=== PATIENT | female | born 1945 | race Caucasian/White ===

== ENCOUNTER → 2017-12-06 10:28 | Outpatient (CLI) | payer MEDICARE, SELFPAY ==
[2017-12-08 13:10] LABS: Endomysial Antibody IgA Negative (Negative)
[2017-12-08 13:43] LABS: Immunoglobulin A 182 mg/dL (64-422); t-Transglutaminase IgA <2 U/mL (0-3)
== END ==
PROVIDERS: Family Provider Family Medicine; PCP Family Medicine; Referring Provider Internal Medicine Gastroenterology; Visit Provider Internal Medicine Gastroenterology
DX: K90.0 Celiac disease (principal)
CPT/HCPCS: 36415; 82784; 83516; 86255

== ENCOUNTER → 2018-11-22 | Outpatient (CLI) | payer MEDICARE, SELFPAY ==
[2018-11-22 14:09] LABS: Erythrocyte Sedimentation Rate 51 mm/hr (0-30)
[2018-11-26 12:07] LABS: Anti-Jo <0.2 AI (0.0-0.9); Anti-Scleroderma-70 AB <0.2 AI (0.0-0.9)
[2018-11-26 12:31] LABS: ANTINUCLEAR ANTIBODIES DIRECT Negative (Negative); Anti-dsDNA Ab <1 IU/mL (0-9)
[2018-11-27 16:08] LABS: Angiotensin Convert Enzyme 35 U/L (14-82); Cytoplasmic Ab (C-ANCA) 1:20 titer (Neg:<1:20)
[2018-11-28 12:55] LABS: CCP IgG Antibodies 6 units (0-19)
== END | disposition home or self-care (01) ==
PROVIDERS: Family Provider Family Medicine; PCP Family Medicine; Referring Provider Internal Medicine Pulmonary Disease; Visit Provider Internal Medicine Pulmonary Disease
DX: R05 Cough (principal); M19.90 Unspecified osteoarthritis, unspecified site; J84.10 Pulmonary fibrosis, unspecified
CPT/HCPCS: 36415; 82164; 85652; 86038; 86140; 86200; 86225; 86235; 86256; 86431

== ENCOUNTER → 2018-11-23 | Outpatient (CLI) | payer MEDICARE, SELFPAY | END | disposition home or self-care (01) | LOC: LABSPEC 11:34 | PROVIDERS: Family Provider Family Medicine; PCP Family Medicine; Referring Provider Internal Medicine Pulmonary Disease; Visit Provider Internal Medicine Pulmonary Disease | DX: R05 Cough (principal); J84.10 Pulmonary fibrosis, unspecified | CPT/HCPCS: 87015; 87116; 87206 ==

== ENCOUNTER → 2018-11-27 | Outpatient (CLI) | payer MEDICARE, SELFPAY | END | disposition home or self-care (01) | LOC: LABSPEC 09:50 | PROVIDERS: Family Provider Family Medicine; PCP Family Medicine; Referring Provider Internal Medicine Pulmonary Disease; Visit Provider Internal Medicine Pulmonary Disease | DX: R05 Cough (principal); J84.10 Pulmonary fibrosis, unspecified | CPT/HCPCS: 87015; 87116; 87206 ==

== ENCOUNTER → 2018-11-28 | Outpatient (CLI) | payer MEDICARE, SELFPAY | END | disposition home or self-care (01) | LOC: LABSPEC 11:26 | PROVIDERS: Family Provider Family Medicine; PCP Family Medicine; Referring Provider Internal Medicine Pulmonary Disease; Visit Provider Internal Medicine Pulmonary Disease | DX: R05 Cough (principal); J84.10 Pulmonary fibrosis, unspecified | CPT/HCPCS: 87015; 87116; 87206 ==

== ENCOUNTER → 2018-11-30 | Outpatient (CLI) | payer MEDICARE, SELFPAY ==
--- NOTE | 2018-11-30 09:44 | RAD_ITS ---
PROCEDURE: Sniff test. DATE OF EXAMINATION: November 30, 2018. INDICATION: Female, 73 years old. Pulmonary fibrosis. FLUOROSCOPY TIME (if supplied): (0:14) minutes/seconds. One image was obtained. There is normal translation of the hemidiaphragms during inspiration and expiration maneuvers. RAD/Chest Sniff Test Fluoro Only IMPRESSION: Normal translation of the hemidiaphragms. Electronically Signed: Carl Salas, at 10:37 EDT , Service support ,
--- NOTE | 2018-11-30 09:55 | RAD_ITS ---
STUDY: X-RAY CHEST REASON FOR EXAM: Female, 73 years old. Pulmonary fibrosis TECHNIQUE: PA and lateral views of the chest. COMPARISON: None. FINDINGS: There are interstitial fibrotic changes of the lungs, particularly the lung bases. There is no demonstrated pleural abnormality. Normal size heart. Normal mediastinum and saeed. Normal visualized pulmonary arteries. There is atherosclerotic tortuosity of the aortic arch and descending thoracic aorta. There is demineralization of the osseous structures. Exaggerated thoracic kyphosis with compression fracture of the lower thoracic spine, likely chronic. There is no demonstrated abnormality of the visualized soft tissue structures of the upper abdomen. RAD/Chest PA and Lateral IMPRESSION: Significant pulmonary fibrosis particularly in the lung bases. Electronically Signed: Marv Pan MD ([place]) at 17:08 EDT , Service support ,
== END | disposition home or self-care (01) ==
LOC: RAD 09:41
PROVIDERS: Family Provider Family Medicine; PCP Family Medicine; Referring Provider Internal Medicine Pulmonary Disease; Visit Provider Internal Medicine Pulmonary Disease
DX: J84.10 Pulmonary fibrosis, unspecified (principal); R06.00 Dyspnea, unspecified
CPT/HCPCS: 71046; 76000

== ENCOUNTER → 2019-03-01 15:09 | Outpatient (CLI) | payer MEDICARE, SELFPAY ==
--- NOTE | 2019-03-01 15:12 | RAD_ITS ---
STUDY: X-RAY CHEST REASON FOR EXAM: Female, 73 years old. pulmonary fibrosis TECHNIQUE: PA and lateral views of the chest. COMPARISON: 11/30/2018 FINDINGS: Peripheral and basilar dominant parenchymal fibrosis/reticulation similar in distribution since prior study. No airspace consolidation. There is no demonstrated pleural abnormality. Normal size heart. Normal mediastinum and saeed. Normal visualized pulmonary arteries. There is atherosclerotic tortuosity of the aortic arch and descending thoracic aorta. There is demineralization of the osseous structures. Operative changes of the left proximal humerus partially visualized. There is no demonstrated abnormality of the visualized soft tissue structures of the upper abdomen. RAD/Chest PA and Lateral IMPRESSION: Similar pulmonary fibrosis. Electronically Signed: Marv Pan MD ([place]) at 17:04 EST , Service support ,
== END ==
PROVIDERS: Family Provider Family Medicine; PCP Family Medicine; Referring Provider Internal Medicine Pulmonary Disease; Visit Provider Internal Medicine Pulmonary Disease
DX: J84.10 Pulmonary fibrosis, unspecified (principal)
CPT/HCPCS: 71046

== ENCOUNTER 2019-03-10 19:16 | Inpatient (IN) | payer MEDICARE, SELFPAY ==
[2019-03-10 19:19] VITALS: BP 180/86; PULSE 78; RESP 25; TEMP 36.1; O2SAT 100; BMI 20.6
[2019-03-10 19:27] VITALS: BP 180/86; PULSE 76; RESP 24; O2SAT 98
[2019-03-10 19:36] LABS: Bedside Glucose 89 mg/dL (70-110)
--- NOTE | 2019-03-10 19:40 | CT_ITS ---
STUDY: CT THORACIC SPINE WITHOUT CONTRAST REASON FOR EXAM: Female, 73 years old. Compression fracture. Back pain. RADIATION DOSAGE (If Supplied By Facility): CTDIvol = ( 18.42 ) mGy, DLP = ( 700.93 ) mGycm TECHNIQUE: The patient was scanned in a multi detector CT scanner. High resolution imaging was performed. Sagittal and coronal images were reconstructed. Individualized dose optimization techniques were used for this CT. COMPARISON: Radiographs 02/07/2017, chest x-ray 03/01/2019. FINDINGS: Exam is markedly limited because patient was constantly moving. Severe demineralization. Severe compression fracture of T11 similar to previous radiographs. Moderate to severe compression fractures of T7 and T8, very difficult to see on any prior studies. These could be acute or subacute. Moderate levoconvex scoliosis centered at the lower thoracic spine. Rib fractures cannot be excluded because of the motion. Severe fibrotic pulmonary disease. CT/Spine Thoracic without Contras IMPRESSION: Extremely limited exam, nearly uninterpretable. Compression fractures of T7, and T8 are of indeterminate age. Severe compression fracture of T11 was present on previous studies listed above but has progressed since 2017. Electronically Signed: Braulio Barlow MD at 21:47 EST , Service support ,
--- NOTE | 2019-03-10 19:42 | ED.VIS.GEN ---
History of Present Illness Chief Complaint: Alt LOC Informant: Patient, Family Onset: Yesterday Narrative: Presents EMS from home he with family worsening nontraumatic upper back pain since yesterday. History of osteoporosis, multiple compression fractures in the past, no surgical intervention, current chronic prednisone use daily for the past 3 months due to history of pulmonary fibrosis. She was started on CellCept 4 days ago. Tylenol with codeine taken at 6 PM less than 2 hours ago with no relief. No radicular symptoms. Symptoms worse with movement. Chronic dyspnea and O2 use due to pulmonary fibrosis, per spouse and family currently high concerns for potential rheumatoid arthritis causing pulmonary fibrosis due to her mother having significant rheumatoid arthritis. She is being referred to a manufacturing engineering technician. Nursing charting noted concerns for confusion, however per spouse and family, there is no confusion at times she just would not answer. Patient denies any nausea, vomiting, diarrhea. No urinary symptoms. States chronic mild cough nonproductive due to her pulmonary fibrosis. Patient reports she does not ambulate with a walker. States due to her back pain causing her to feel dyspneic. Prior similar symptoms: Yes Past Medical History - Allergies and Home Meds Allergies/Adverse Reactions: Allergies cortisone Allergy (Verified 02/07/17 11:52) Swelling latex Allergy (Verified 02/07/17 11:52) Other WAS TOLD TO AVOID sulfamethoxazole [From Bactrim] Allergy (Verified 02/07/17 11:52) Other PROBLEMS SWALLOWING trimethoprim [From Bactrim] Allergy (Verified 02/07/17 11:52) Other PROBLEMS SWALLOWING sulfadimethoxine Adverse Reaction (Verified 02/07/17 11:52) Other I HAD TROUBLE WITHY MY THROAT Surgical History: - - The patient had a bladder suspension procedure performed many years ago. Smoking Status: Former smoker - Family History Maternal Family History: Reports: No pertinent history Paternal Family History: Reports: No pertinent history Review of Systems General: Denies: Chills, Fever, Sweats Eyes: Denies: Visual changes - bilaterally, Diplopia ENT: Denies: Rhinorrhea, Sore throat Cardiovascular: Denies: Chest pain, Palpitations Respiratory: Reports: Dyspnea. Denies: Cough, Dyspnea on exertion Gastrointestinal: Denies: Abdominal pain, Nausea, Vomiting, Diarrhea, Melena, Hematochezia Genitourinary: Denies: Dysuria, Hematuria, Frequency Musculoskeletal: Reports: Back pain. Denies: Extremity Pain Skin: Denies: Rash, Wounds Neurological: Denies: Headache, Weakness, Numbness Physical Exam Vital Signs/Narrative: Vital Signs Temp Pulse Resp BP Pulse Ox 03/10/19 19:27 76 24 H 180/86 H 98 03/10/19 19:19 97.0 F L 78 25 H 180/86 H 100 Inital Vital Signs reviewed: Yes General: - - Nontoxic patient, on oxygen, answering questions. Head: Normocephalic, Atraumatic Eyes: Perrl, EOMI ENT: Moist mucous membranes, No rhinorrhea Neck: Supple, Nontender Cardiovascular: Regular rate, Regular rhythm, No murmurs Respiratory: No distress, CTA bilaterally, Chest nontender Abdomen: Soft, Nontender, Nondistended, Normal bowel sounds Back: - - Kyphosis of the upper back with tenderness mid thoracic. No step-offs. No lumbar tenderness. Extremities: Nontender, No edema Skin: Normal color, No rash Neurological: Alert, Oriented x3, Cranial nerves II-XII grossly intact, Normal Strength, Normal Sensation Psychological: Normal affect, Normal Mood Diagnostic/Tx/Re-eval Clinical Impression(s) from Imaging Studies Thoracic Spine CT 03/10/19 19:40 IMPRESSION: Extremely limited exam, nearly uninterpretable. Compression fractures of T7, and T8 are of indeterminate age. Severe compression fracture of T11 was present on previous studies listed above but has progressed since 2017. Electronically Signed: Braulio Barlow MD at 21:47 EST , Service support , Abnormal Lab Results 03/10/19 03/10/19 03/10/19 19:20 19:20 19:26 WBC 13.8 H RBC 4.69 Hgb 14.6 Hct 45.1 MCV 96.2 MCH 31.1 MCHC 32.4 RDW Std Deviation 50.4 H RDW Coeff of Joey 14.5 Plt Count 381 MPV 10.2 Immature Gran % (Auto) 0.700 Neut % (Auto) 64.3 Lymph % (Auto) 23.7 [place] % (Auto) 10.5 H Eos % (Auto) 0.5 Baso % (Auto) 0.3 Absolute Neuts (auto) 8.9 H Absolute Lymphs (auto) 3.27 Nucleated RBC % 0 Sodium 137 Potassium 3.7 Chloride 99 Carbon Dioxide 30.0 Anion Gap 8 BUN 20 H Creatinine 1.00 Estim Creat Clear Calc 35.99 Est GFR (MDRD) Af Amer 70 Est GFR (MDRD) Non-Af 58 L BUN/Creatinine Ratio 20.0 Glucose 105 Calcium 9.3 POC Glucose 89 - Medical Decision Making After evaluation patient concerns for recurrent compression fracture of her back causing her dyspnea. She has risk factors osteoporosis and chronic steroid therapy. Stable on her oxygen. Labs were obtained with slight leukocytosis however she is on steroids. Pretreated with morphine due to her kyphosis and back pain, received call patient was able to lay still even additional fentanyl. They were able to to do the CT have reported to me likely to be nondiagnostic. I discussed with them the try to obtain an upright thoracic films which was obtained and pending. However in the interim CT was read by radiology with a lot of motion artifact reporting an old T11 fracture reporting potential acute versus subacute T7-T8 fracture. Review of records noted she had a thoracic x-ray in 2017 reporting only a T8 fracture then, at this time I would suspect possibly of T7 fracture being the culprit of her pain. She reports she feels more comfortable and breathing better with pain control as long she is not moving. Tylenol with codeine is not helping at home, I do feel she will benefit from admission for pain control. She is not a surgical candidate due to her osteoporosis and discussion with family has been told would likely cause additional fractures other regions. I spoke with hospitalist Dr. long who agrees for admission. ED Disposition - Plan for ED Patient: Disposition: Acute Care Hospital [facility] Diagnosis: Intractable back pain, Compression fracture of T7 vertebra
[2019-03-10 19:51] LABS: Absolute Lymphocyte Count 3.27 X10^3/uL (0.83-4.51); Absolute Neutrophil Count 8.9 X10^3/uL (2.0-7.7); Basophil# 0.04 X10^3/uL; Basophil% 0.3 % (0-1); Eosinophil# 0.07 X10^3/uL; Eosinophils% 0.5 % (0-5); Hematocrit 45.1 % (37-47); Hemoglobin 14.6 g/dL (12.0-15.0); Lymphocyte # 3.27 X10^3/ul (4.0); Lymphocyte % 23.7 % (19-41); Mean Corp Hgb Conc 32.4 g/dL (32-36); Mean Corpuscular Hgb 31.1 pg (27.0-32.0); Mean Corpuscular Volume 96.2 fL (81-99); Mean Platelet Vol. 10.2 fl (6.2-12.0); Monocyte# 1.45 X10^3/uL; Monocyte% 10.5 % (0-10); NRBC Flagged by Analyzer 0 % (0-5); Neutrophil # 8.89 X10^3/uL (2.7-7.7); Neutrophil % 64.3 % (47-70); Platelet Count 381 K/mm3 (150-450); RBC Distribution Width CV 14.5 % (11.6-14.6); RBC Distribution Width SD 50.4 fl (35.1-43.9); Red Blood Count 4.69 M/mm3 (4.2-5.4); White Blood Count 13.8 K/mm3 (4.4-11.0)
[2019-03-10] MEDS: Morphine 4 MG/ML Syringe IV (19:52)
[2019-03-10 19:58] LABS: Anion Gap 8 (5-15); BUN 20 mg/dL (7-18); Calcium,Total 9.3 mg/dL (8.5-10.1); Chloride 99 mmol/L (98-107); EST Glomerular Filtration Rate 58 mL/min (>60); Est Glom Filt Rate - Afr Amer 70 mL/min (>60); Estimated Creatinine Clearance 35.99 ml/min; Glucose 105 mg/dL (74-106); Potassium 3.7 mmol/L (3.5-5.1); Sodium Level 137 mmol/L (136-145)
[2019-03-10] MEDS: fentaNYL 100 MCG/2 ML Ampul 50 MCG IV (20:17)
--- NOTE | 2019-03-10 21:10 | RAD_ITS ---
STUDY: X-RAY - THORACIC SPINE REASON FOR EXAM: Female, 73 years old. BACK PAIN TECHNIQUE: 3 view(s) of the thoracic spine were obtained. COMPARISON: 02/07/2017. FINDINGS: There is an increase in the normal thoracic kyphosis. There is no substantial scoliosis. Severe multilevel spondylosis and multiple wedge compression deformities, age indeterminate. The upper thoracic spine is poorly characterized due to radiographic technique and patient body habitus. Increased pulmonary markings are poorly characterized. RAD/Thoracic Spine 3 Views IMPRESSION: Limited evaluation due to patient body habitus and radiographic technique. Severe multilevel spondylosis and multiple wedge compression deformities are worsened since the prior examination and are better assessed by CT. Electronically Signed: Adin Avina, at 22:46 EST Tel , Service support ,
--- NOTE | 2019-03-10 22:20 | HP.PCM_ITS ---
Problem List (1) Psoriasis Status: Chronic (2) Lumbar disc disease Status: Chronic (3) Hypertension Status: Chronic Qualifiers: Hypertension type: essential hypertension Qualified Code(s): I10 - Essential (primary) hypertension (4) Intractable back pain Status: Acute (5) Compression fracture of T7 vertebra Status: Acute Qualifiers: Encounter type: initial encounter Qualified Code(s): S22.060A - Wedge compression fracture of T7-T8 vertebra, initial encounter for closed fracture History of Present Illness Date of Admission: 03/10/19 Chief Complaint: Back pain - 2 days The patient is a 73 year old F with past medical history of severe pulmonary fibrosis, chronic hypoxic respiratory failure, on 2.5 L of home oxygen, on chronic prednisone since the past 3 months, history of osteoporosis with multiple vertebral compression fractures comes in with complaints of severe back pain that started 2 days ago. History was obtained from the as patient was in pain and sometimes refuses to answer. Has no history of a fall or trauma. Patient suddenly complained of severe back pain and this has been similar to her previous compression fractures. Pain was not relieved with her usual Tylenol #3. Pain is worse with movement. No tingling or numbness. No incontinence of urine or stool. She has recently been started on CellCept for possible rheumatoid arthritis based on a family history of rheumatoid arthritis. She has been referred to a insurance claims clerk and is yet to see physician. Baseline, patient does not need any assistive devices to ambulate. He however is currently unable to ambulate. Vitals in the ED showed temperature of 97.0F, heart rate 78, blood pressure 180/86, respiratory rate 25, SPO2 100% on 2.5 L of oxygen. WBC count is 13.8, hemoglobin 14.6, platelet count 381, BMP is unremarkable. CT scan of the thoracic spine shows severe compression fracture of T11 that appears to be chronic. Moderate to severe compression fractures of T7-T8, likely acute. Past Medical History Past Medical History (Chronic Problems): Chronic Problems (Last Reviewed 02/07/17 @ 11:52 by Nawaf Ny) Edema of both legs (Chronic) Eczema (Chronic) Erythromelalgia (Chronic) Swelling of lower extremity (Chronic) Raynaud's phenomenon (Chronic) Psoriasis (Chronic) Pain in both lower legs (Chronic) Lumbar disc disease (Chronic) Hypertension (Chronic) Allergies cortisone Allergy (Verified 02/07/17 11:52) Swelling latex Allergy (Verified 02/07/17 11:52) Other WAS TOLD TO AVOID sulfamethoxazole [From Bactrim] Allergy (Verified 02/07/17 11:52) Other PROBLEMS SWALLOWING trimethoprim [From Bactrim] Allergy (Verified 02/07/17 11:52) Other PROBLEMS SWALLOWING sulfadimethoxine Adverse Reaction (Verified 02/07/17 11:52) Other I HAD TROUBLE WITHY MY THROAT Home Medications: Ambulatory Orders Medication Instructions Recorded Clonidine HCl [Catapres] 0.3 mg PO TID 11/04/14 Multivit-Min/FA/Lycopen/Lutein 1 ea PO DAILY 03/15/16 [Centrum Silver Tablet] Potassium Chloride [Klor-Con] 20 meq PO DAILY 03/15/16 Alendronate Sodium [Fosamax] 70 mg PO QWEEK 08/10/16 Acetaminophen with Codeine 1 - 2 tab PO Q6H PRN 03/10/19 [Acetaminophen-Cod #3 Tablet] Brinzolamide/Brimonid Tart 1 drp OP QHS 03/10/19 [Simbrinza 1%-0.2% Eye Drops] Buspirone HCl 10 mg PO TID 03/10/19 Latanoprost 0.005% [Xalatan 1 drp EACHEYE BID 03/10/19 Opthalmic] Mycophenolate Mofetil [Cellcept] 500 mg PO BID 03/10/19 Netarsudil Mesylate [Rhopressa] 2.5 ml EACHEYE QHS 03/10/19 Omeprazole [Prilosec] 20 mg PO DAILY 03/10/19 Prednisone [Deltasone] 30 mg PO DAILY 03/10/19 Tizanidine HCl 4 mg PO Q8H 03/10/19 Surgical History: - - The patient had a bladder suspension procedure performed many years ago, removal of cyst from perineum Psychiatric History: No pertinent psych hx 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 Lives: Spouse/ Significant Other Smoking Status: Former smoker Tobacco Use: Non-smoker Alcohol: None Drugs: None - *Family History Maternal History Items: - - Rheumatoid arthritsi Paternal History Items: No pertinent history Review of Systems Respiratory: Denies: Sputum production Psychiatric: Reports: Anxiety Unable to obtain accurate/complete ROS d/t: Unable to do a complete ROS as pt is in deep pain and refuses to answer VTE Information - Inpt Only VTE Present on Admission: No VTE Pharm Prophylaxis ordered?: Yes Patient Problems: Active and Suspected Problems (Last Reviewed 02/07/17 @ 11:52 by Nawaf Ny) Intractable back pain (Acute) Compression fracture of T7 vertebra (Acute) - Physical Exam Vitals/I&O's: Vital Signs Temp Pulse Resp BP Pulse Ox 97.0 F L 76 24 H 180/86 H 98 03/10/19 19:19 03/10/19 19:27 03/10/19 19:27 03/10/19 19:27 03/10/19 19:27 Oxygen Flow Rate (L/min) 2.5 Oxygen Delivery Method Room Air Weight: 48 kg Body Mass Index (BMI) 20.6 Finger Stick Blood Glucose 89 Intake and Output for Last 24 Hours 03/08/19 03/09/19 03/10/19 23:59 23:59 23:59 Intake Total 500 / 500 Balance 500 / 500 General: Alert, Cooperative, - - in severe pain, does not answer to questions, keeps eyes closed and flinches HEENT: Atraumatic, PERRLA, EOMI, Normocephalic Oral: Moist Mucosa Neck: Supple Lungs: Clear to auscultation, Normal air movement Cardiovascular: Regular rate, Regular Rhythm, Normal S1, Normal S2, No murmurs Abdomen: Bowel Sounds Present, Soft, Non Tender, Non-Distended, No Hepato- splenomegaly Extremities: No edema Skin: No rashes Musculoskeletal: No Tenderness to Palpation of Joints or Extremities Lymphatic: No Cervical, Supraclavicular, or Inguinal Adenopathy Neurological: Cranial nerves II-XII grossly intact, Neuro grossly intact Psych/Mental Status: Normal Affect, Appropriate Laboratory Results 03/10/19 19:20: WBC 13.8 H, RBC 4.69, Hgb 14.6, Hct 45.1, MCV 96.2, MCH 31.1, MCHC 32.4, RDW Std Deviation 50.4 H, RDW Coeff of Joey 14.5, Plt Count 381, MPV 10.2, Immature Gran % (Auto) 0.700, Neut % (Auto) 64.3, Lymph % (Auto) 23.7, [place] % (Auto) 10.5 H, Eos % (Auto) 0.5, Baso % (Auto) 0.3, Absolute Neuts (auto) 8.9 H, Absolute Lymphs (auto) 3.27, Nucleated RBC % 0 03/10/19 19:20: Sodium 137, Potassium 3.7, Chloride 99, Carbon Dioxide 30.0, Anion Gap 8, BUN 20 H, Creatinine 1.00, Estim Creat Clear Calc 35.99, Est GFR (MDRD) Af Amer 70, Est GFR (MDRD) Non-Af 58 L, BUN/Creatinine Ratio 20.0, Glucose 105, Calcium 9.3 03/10/19 19:26: POC Glucose 89 Assessment/Plan All Active Problems (Last Reviewed 02/07/17 @ 11:52 by Nawaf Ny) Intractable back pain (Acute) Compression fracture of T7 vertebra (Acute) Hyponatremia (Acute) Abdominal pain (Acute) 73 year old F with past medical history of severe pulmonary fibrosis, chronic hypoxic respiratory failure, on 2.5 L of home oxygen, on chronic prednisone since the past 3 months, history of osteoporosis with multiple vertebral compression fractures comes in with complaints of severe back pain that started 2 days ago. 1. Acute on chronic back pain secondary to acute T7 compression fractures Patient has history of osteoporosis, on chronic prednisone for more than 3 months for severe pulmonary fibrosis History of vertebral compression fractures, takes tylenol #3 at home Hold Tylenol#3, oxycodone as needed, scheduled Tylenol, morphine as needed, Lidoderm patches to the upper back affected area Continue on tizanidine Pain management - Dr. Patel consulted 2. Severe pulmonary fibrosis with chronic hypoxic respiratory failure, on 2.5 L of oxygen Patient is on chronic prednisone, recently started on CellCept for possible rheumatoid arthritis involvement Pulmonology consult -Dr Engle 3. Hypertension, uncontrolled secondary to pain, on clonidine, will continue same 4. Osteoporosis, on alendronate 5. DVT PPx - on Heparin SC Code Visit Inpatient E&M: 40439 Init Hosp L3
[2019-03-10 22:22] VITALS: BP 151/89; PULSE 85; RESP 14; O2SAT 100
[2019-03-10 23:36] VITALS: BP 157/96; PULSE 79; RESP 20; TEMP 36.7; O2SAT 96; BMI 21.3
[2019-03-10 23:53] VITALS: RESP 22; BMI 21.3
[2019-03-11] VITALS (24 sets, daily range): BP systolic 126–198; BP diastolic 63–94; PULSE 81–121; RESP 16–44; TEMP 36.6–37.1; O2SAT 94–99
[2019-03-11] MEDS: Ondansetron 4 MG/2 ML Vial IV (00:22)
[2019-03-11] MEDS: Latanoprost 0.005% 1 Bottle 1 DRP OPHTHALMIC ×3 (00:24→22:08)
[2019-03-11] MEDS: Morphine 2 MG/ML Syringe IV ×5 (00:25→22:08)
[2019-03-11] MEDS: Mycophenolate Mofetil 250 MG Capsule 500 MG PO (00:26)
[2019-03-11] MEDS: 0.9% Normal Saline 1,000 ML 100 ML IV (00:32)
[2019-03-11] MEDS: 0.9% Saline Lock 10 ML Syringe IV ×6 (00:33→23:47)
[2019-03-11] MEDS: Acetaminophen 500 MG Tablet 1000 MG PO (00:33)
[2019-03-11 05:53] LABS: Absolute Lymphocyte Count 1.25 X10^3/uL (0.83-4.51); Absolute Neutrophil Count 13.1 X10^3/uL (2.0-7.7); Basophil# 0.03 X10^3/uL; Basophil% 0.2 % (0-1); Eosinophil# 0.01 X10^3/uL; Eosinophils% 0.1 % (0-5); Hematocrit 38.6 % (37-47); Hemoglobin 12.4 g/dL (12.0-15.0); Lymphocyte # 1.25 X10^3/ul (4.0); Lymphocyte % 8.5 % (19-41); Mean Corp Hgb Conc 32.1 g/dL (32-36); Mean Corpuscular Hgb 30.8 pg (27.0-32.0); Mean Platelet Vol. 10.6 fl (6.2-12.0); Monocyte# 0.27 X10^3/uL; Monocyte% 1.8 % (0-10); NRBC Flagged by Analyzer 0 % (0-5); Neutrophil # 13.09 X10^3/uL (2.7-7.7); Neutrophil % 88.8 % (47-70); Platelet Count 327 K/mm3 (150-450); RBC Distribution Width CV 14.4 % (11.6-14.6); RBC Distribution Width SD 50.8 fl (35.1-43.9); Red Blood Count 4.02 M/mm3 (4.2-5.4); White Blood Count 14.7 K/mm3 (4.4-11.0)
[2019-03-11] MEDS: hydrALAZINE 20 MG/ML Vial 5 MG IV ×3 (06:11→20:19)
[2019-03-11 06:25] LABS: ALB/GLOB Ratio 0.8 RATIO (0.9-2.4); AST(SGOT) 27 U/L (15-37); Alanine Aminotransfer ALT/SGPT 31 U/L (13-56); Albumin, Serum 2.6 g/dL (3.2-5.0); Alkaline Phosphatase 82 U/L (45-117); Anion Gap 5 (5-15); BUN 19 mg/dL (7-18); BUN/Creat Ratio 28.2 RATIO (10-20); Calcium,Total 8.5 mg/dL (8.5-10.1); Chloride 105 mmol/L (98-107); Creatinine, Serum 0.67 mg/dL (0.55-1.02); EST Glomerular Filtration Rate 91 mL/min (>60); Est Glom Filt Rate - Afr Amer 110 mL/min (>60); Globulin 3.2 g/dL (2.2-4.2); Glucose 102 mg/dL (74-106); Potassium 4.2 mmol/L (3.5-5.1); Protein, Total 5.8 g/dL (6.4-8.2); Sodium Level 137 mmol/L (136-145)
[2019-03-11] MEDS: Ipratropium/Albuterol Sulfate 3 ML AMPUL.NEB INHALATION ×4 (06:36→19:13)
--- NOTE | 2019-03-11 08:46 | CT_ITS ---
STUDY: CT BRAIN WITHOUT CONTRAST REASON FOR EXAM: Female, 73 years old. AMS RADIATION DOSAGE (If Supplied By Facility): CTDIvol = ( 44.99 ) mGy, DLP = ( 1524.73 ) mGycm TECHNIQUE: Transaxial CT imaging of the brain was performed without administration of intravenous contrast material. Individualized dose optimization techniques were used for this CT. COMPARISON: No relevant priors. FINDINGS: Normal soft tissue structures. Normal calvarium. There is mild cerebral atrophy with widening of the extra-axial spaces and ventricular dilatation. There are areas of decreased attenuation within the white matter tracts of the supratentorial brain, consistent with microvascular disease changes. Normal basal ganglia and thalami. Normal brainstem. Normal cerebellum. There is no intracranial hemorrhage. There are no findings of an acute ischemic infarction. Normal visualized paranasal sinuses. CT/Brain/Head without Contrast IMPRESSION: Chronic involutional changes of the brain. Electronically Signed: Carl Salas, at 13:25 EST , Service support ,
--- NOTE | 2019-03-11 08:58 | RAD_ITS ---
STUDY: X-RAY CHEST REASON FOR EXAM: Female, 73 years old. EXTREME SHORTNESS OF BREATH. TECHNIQUE: AP and lateral views of the chest. COMPARISON: Comparison is made with prior examination dated March 01, 2019. FINDINGS: Persistent marked degree of increased interstitial markings worse in the lower lobes indicative of chronic interstitial fibrosis. There has been essentially no change. There is no demonstrated pleural abnormality. Normal size heart. Normal mediastinum and saeed. Normal visualized pulmonary arteries. Normal visualized aortic arch and descending thoracic aorta. There is demineralization of the osseous structures. Increased kyphosis. Prior fixation of the proximal left humerus. There is no demonstrated abnormality of the visualized soft tissue structures of the upper abdomen. RAD/Chest PA and Lateral IMPRESSION: Stable extensive interstitial fibrosis of both lungs. Electronically Signed: Carl Salas, at 10:08 EST , Service support ,
--- NOTE | 2019-03-11 09:03 | NURSING ---
Called PCU to give report, [facility] team truck driver did not know yet would be receiving the pt.
--- NOTE | 2019-03-11 09:05 | NURSING ---
[id number]: mix house operator notified per Adam PA needs bed in pcu. receieved room 105. primary RN informed. aware pt on their way to CT. Aware pt will go to PCU afterwards. CT called and informed. primary RN calling report
--- NOTE | 2019-03-11 09:06 | NURSING ---
wound photo: right medial lower leg
--- NOTE | 2019-03-11 09:06 | NURSING ---
wound photo: left heel
--- NOTE | 2019-03-11 09:08 | NURSING ---
Daniel called and informed of transfer
--- NOTE | 2019-03-11 09:12 | NURSING ---
Report called to Deedee [place].
[2019-03-11] MEDS: LORazepam 2 MG/ML Syringe 0.5 MG IV ×3 (10:10→23:42)
[2019-03-11] MEDS: Heparin Injection (Vial) 5,000 UNIT/ML VIAL 5000 UNIT SC ×2 (10:11→22:13)
[2019-03-11 10:22] LABS: Ammonia < 10.0 umol/L (11-32)
[2019-03-11 10:24] LABS: Lactic Acid 2.2 mmol/L (0.4-1.9)
[2019-03-11] MEDS: Lidocaine 5% Patch 2 PATCH TOPICAL (11:23)
[2019-03-11 11:42] LABS: Bacteria 0 SEEN /hpf (None Seen); Mucous, Urine 0 SEEN /hpf (<or=2+); Red Blood Cells-Urine 0 SEEN /hpf (0-5); Squamous Epithelial Cells - UA 0 SEEN /hpf (5-10); White Blood Cells 0 SEEN /hpf (0-5)
[2019-03-11 12:02] LABS: Color, Urine Yellow (Yellow); Glucose, Dipstick Normal (Normal); Leukocyte Esterase-Dipstick Negative /ul (Negative); Nitrite-Dipstick Negative (Negative); Occult Blood-Urine Negative /ul (Negative); Protein-Dipstick 15 mg/dl (Negative); Urine Bilirubin Dipstick Negative (Negative); Urine Clarity Clear (Clear); Urine Urobilinogen Normal (Normal)
[2019-03-11 12:33] LABS: Ketone-Dipstick 150 mg/dl (Negative)
--- NOTE | 2019-03-11 13:01 | PCM.PN.HOSP ---
<Adam Rudolph - Last Filed: 03/11/19 15:31> Patient Problems: Active and Suspected Problems (Last Reviewed 02/07/17 @ 11:52 by Nawaf Ny) Intractable back pain (Acute) Compression fracture of T7 vertebra (Acute) Reason for Visit: AMS Subjective: Pt with increasing confusion overnight, and increased tachycardia, tachypnea, anxiety, and restlessness. She denies back pain today. She does report chills. She denies dysuria, cough, sob, abd pain, cp, LH/dizziness. No slurred speech or focal weakness. No SHEA, hearing or vision change. No numbness tingling. I spoke to her who reports that she has intermittent confusion at home when she has low sodium or severe back pain. He reports she has not been eating or drinking. Vitals/I&O's: Vital Signs Temp Pulse Resp BP Pulse Ox 98.6 F 93 18 136/69 H 99 03/11/19 11:00 03/11/19 11:00 03/11/19 11:00 03/11/19 11:00 03/11/19 11:00 Oxygen Flow Rate (L/min) 2.5 Oxygen Delivery Method Room Air Weight: 102 lb 8.239 oz Body Mass Index (BMI) 21.3 Finger Stick Blood Glucose 89 Intake and Output for Last 24 Hours 03/09/19 03/10/19 03/11/19 23:59 23:59 23:59 Intake Total 500 / 500 1620 / 1620 Output Total 1100 / 1100 Balance 500 / 500 520 / 520 General: Alert, Cooperative, Confused, Disoriented, - - a/ox2, frail HEENT: Atraumatic, PERRLA, EOMI, Normocephalic Neck: Supple, No JVD, Negative Carotid Bruits Lungs: Clear to auscultation, Diminished Cardiovascular: No murmurs, Tachycardic Abdomen: Bowel Sounds Present, Soft, Non Tender Extremities: No edema, Capillary Refill Less than 3 Seconds Skin: No rashes, No breakdown, - - L heal wound, no acute warmth, inflammation, erythema, drainage. Musculoskeletal: No Tenderness to Palpation of Joints or Extremities Neurological: Cranial nerves II-XII grossly intact Psych/Mental Status: Anxious, Restless Laboratory Results 03/10/19 19:20: WBC 13.8 H, RBC 4.69, Hgb 14.6, Hct 45.1, MCV 96.2, MCH 31.1, MCHC 32.4, RDW Std Deviation 50.4 H, RDW Coeff of Joey 14.5, Plt Count 381, MPV 10.2, Immature Gran % (Auto) 0.700, Neut % (Auto) 64.3, Lymph % (Auto) 23.7, Colbert % (Auto) 10.5 H, Eos % (Auto) 0.5, Baso % (Auto) 0.3, Absolute Neuts (auto) 8.9 H, Absolute Lymphs (auto) 3.27, Nucleated RBC % 0 03/10/19 19:20: Sodium 137, Potassium 3.7, Chloride 99, Carbon Dioxide 30.0, Anion Gap 8, BUN 20 H, Creatinine 1.00, Estim Creat Clear Calc 35.99, Est GFR (MDRD) Af Amer 70, Est GFR (MDRD) Non-Af 58 L, BUN/Creatinine Ratio 20.0, Glucose 105, Calcium 9.3 03/10/19 19:26: POC Glucose 89 03/11/19 05:16: WBC 14.7 H, RBC 4.02 L, Hgb 12.4, Hct 38.6, MCV 96.0, MCH 30.8, MCHC 32.1, RDW Std Deviation 50.8 H, RDW Coeff of Joey 14.4, Plt Count 327, MPV 10.6, Immature Gran % (Auto) 0.600, Neut % (Auto) 88.8 H, Lymph % (Auto) 8.5 L, Colbert % (Auto) 1.8, Eos % (Auto) 0.1, Baso % (Auto) 0.2, Absolute Neuts (auto) 13.1 H, Absolute Lymphs (auto) 1.25, Nucleated RBC % 0 03/11/19 05:16: Sodium 137, Potassium 4.2, Chloride 105, Carbon Dioxide 27.0, Anion Gap 5, BUN 19 H, Creatinine 0.67, Estim Creat Clear Calc 36.60, Est GFR (MDRD) Af Amer 110, Est GFR (MDRD) Non-Af 91, BUN/Creatinine Ratio 28.2 H, Glucose 102, Calcium 8.5, Total Bilirubin 1.10 H, AST 27, ALT 31, Alkaline Phosphatase 82, Total Protein 5.8 L, Albumin 2.6 L, Globulin 3.2, Albumin/Globulin Ratio 0.8 L 03/11/19 09:34: Lactic Acid 2.2 H* 03/11/19 09:44: Ammonia < 10.0 L 03/11/19 11:30: Urine Color Yellow, Urine Clarity Clear, Urine pH 6.0, Ur Specific [place] 1.020, Urine Protein 15 H, Urine Glucose (UA) Normal, Urine Ketones 150 H, Urine Occult Blood Negative, Urine Nitrite Negative, Urine Bilirubin Negative, Urine Urobilinogen Normal, Ur Leukocyte Esterase Negative, Urine RBC 0 SEEN, Urine WBC 0 SEEN, Ur Squamous Epith Cells 0 SEEN, Urine Bacteria 0 SEEN, Urine Mucus 0 SEEN Current Medications Acetaminophen (Tylenol) 650 mg PO Q6H PRN PRN PRN Reason: Pain or Fever Albuterol/Ipratropium (Duoneb) 3 ml INHALATION Q4HWA.RT [facility] Last Admin: 03/11/19 10:26 Dose: 3 ml Documented by: Alendronate Sodium (Fosamax) 70 mg PO QWEEK [facility] Last Admin: 03/11/19 07:42 Dose: Not Given Documented by: Buspirone HCl (Buspar) 10 mg PO TID [facility] Last Admin: 03/11/19 12:12 Dose: Not Given Documented by: Clonidine (Catapres) 0.3 mg PO TID [facility] Last Admin: 03/11/19 12:12 Dose: Not Given Documented by: Heparin Sodium (Porcine) (Heparin Na) 5,000 unit SC BID [facility] Last Admin: 03/11/19 10:11 Dose: 5,000 unit Documented by: Hydralazine HCl (Apresoline Iv) 5 mg IV Q6H PRN PRN PRN Reason: BLOOD PRESSURE Last Admin: 03/11/19 06:11 Dose: 5 mg Documented by: Sodium Chloride () 250 mls @ 15 mls/hr IV .[id number] PRN PRN Reason: Saline Flush Sodium Chloride () 250 mls @ 15 mls/hr IV .[id number] PRN PRN Reason: Additional IVPB Infusion Sodium Chloride () 500 mls @ 150 mls/hr IV .[id number] ONE Stop: 03/11/19 14:14 Last Admin: 03/11/19 11:24 Dose: 150 mls/hr Documented by: Latanoprost (Xalatan Opthalmic) 1 drop OPHTHALMIC BID [facility] Last Admin: 03/11/19 10:11 Dose: 1 drop Documented by: Lidocaine (Lidoderm Patch) 2 patch TOPICAL DAILY [facility]; Protocol Last Admin: 03/11/19 11:23 Dose: 2 patch Documented by: Magnesium Hydroxide (Milk Of Magnesia) 30 ml PO DAILY PRN PRN PRN Reason: Constipation Methylprednisolone (Solu-Medrol) 40 mg IV Q8 [facility] Last Admin: 03/11/19 06:11 Dose: 40 mg Documented by: Morphine Sulfate () 2 mg IV Q3H PRN PRN PRN Reason: Pain Score 6-10/10 Last Admin: 03/11/19 06:12 Dose: 2 mg Documented by: Multivitamins/Minerals ([facility]itamin With Minerals) [facility] Last Admin: 03/11/19 09:05 Dose: Not Given Documented by: Mycophenolate Mofetil (Cellcept) 500 mg PO BID [facility] Last Admin: 03/11/19 09:34 Dose: Not Given Documented by: Ondansetron HCl (Zofran) 4 mg IV Q8H PRN PRN PRN Reason: NAUSEA/VOMITING Last Admin: 03/11/19 00:22 Dose: 4 mg Documented by: Oxycodone HCl (Oxyir) 5 mg PO Q4H PRN PRN PRN Reason: Pain Score 4-5/10 Pantoprazole Sodium (Protonix) 20 mg PO DAILY [facility] Last Admin: 03/11/19 09:35 Dose: Not Given Documented by: Psyllium Hydrophilic Mucilloid (Metamucil) 1 packet PO DAILY PRN PRN PRN Reason: Constipation Sodium Chloride () 10 - 40 ml IV UD PRN PRN Reason: SALINE FLUSH Last Admin: 03/11/19 10:11 Dose: 10 ml Documented by: Tizanidine HCl (Zanaflex) 4 mg PO Q8 [facility] Last Admin: 03/11/19 12:13 Dose: Not Given Documented by: STROKE Vital Signs/Narrative: Vital Signs Temp Pulse Resp BP Pulse Ox 03/11/19 11:00 98.6 F 93 18 136/69 H 99 03/11/19 10:26 104 H 24 H 97 01/13/20 10:04 98.6 F 114 H 36 H 155/70 H 98 03/11/19 09:35 98.6 F 114 H 33 H 181/85 H 98 03/11/19 09:33 118 H Medical Necessity - Tobacco Use Smoking Status: Former smoker Tobacco Use: Non-smoker Assessment/Plan All Active Problems (Last Reviewed 02/07/17 @ 11:52 by Nawaf Ny) Intractable back pain (Acute) Compression fracture of T7 vertebra (Acute) Hyponatremia (Acute) Abdominal pain (Acute) 1. Suspected acute severe sepsis - pt immunocompromised on 3 months prednisone and started cellcept last week. + leukocytosis, lactic acidosis, tachypnea, tachycardia. She was receiving scheduled tylenol which may mask underlying fever. CXR without acute change. At baseline o2. CT brain pending. T bili mildly elevated. UA negative. Blood cx pending. ID consulted. 2. Acute metabolic encephalopathy 2/2 above - A/Ox2. She remains NPO as speech found her unable to follow commands to test swallowing. 3. Osteoporosis with compression fractures T spine - PTOT. chronic back pain. complicated by chronic prednisone use. Hold Pain management consult as she currently denies pain and until #1 controlled. She does take alendronate at home. 4. Chronic hypoxic resp failure 2/2 pulmonary fibrosis - no acute change on cxr, o2 demand, no cough or SOB. Her paint brush maker Dr. Engle was consulted. 5. Hx psoriasis, reynauds - wound care following for LE wounds. again, on cellcept / chronic steroids. 6. HTN - likely more anxiety mediated. Pt was highly agitated after receiving small dose ativan BP improved. Defer further htn management until CT brain back. DVT ppx: heparin DC planning: PTOT, may need placement This patient was seen by Adam Rudolph PA-C under the supervision of Dr. Briceño. <Miguel Briceño - Last Filed: 03/11/19 16:08> Vitals/I&O's: Vital Signs Temp Pulse Resp BP Pulse Ox 98.3 F 110 H 27 H 136/63 H 97 03/11/19 15:00 03/11/19 15:00 03/11/19 15:00 03/11/19 15:00 03/11/19 15:00 Oxygen Flow Rate (L/min) 2 Oxygen Delivery Method Nasal Cannula Weight: 102 lb 8.239 oz Body Mass Index (BMI) 21.3 Finger Stick Blood Glucose 89 Intake and Output for Last 24 Hours 03/09/19 03/10/19 03/11/19 23:59 23:59 23:59 Intake Total 500 / 500 5 / 2095 Output Total 1100 / 1100 Balance 500 / 500 995 / 995 General: Cooperative, Confused, Disoriented, Lethargic, - HEENT: Atraumatic, PERRLA, EOMI, Normocephalic Neck: Supple, No JVD, Negative Carotid Bruits Lungs: Diminished, Rales - Crepitation present on bilateral lung bases Abdomen: Bowel Sounds Present, Soft, Non Tender, Non-Distended Extremities: No edema, Capillary Refill Less than 3 Seconds Skin: - Musculoskeletal: Arthritic Changes Neurological: Deep Tendon Reflexes 2+/4 and Symmetrical, Neuro grossly intact, - - No neck rigidity. Laboratory Results 03/10/19 19:20: WBC 13.8 H, RBC 4.69, Hgb 14.6, Hct 45.1, MCV 96.2, MCH 31.1, MCHC 32.4, RDW Std Deviation 50.4 H, RDW Coeff of Joey 14.5, Plt Count 381, MPV 10.2, Immature Gran % (Auto) 0.700, Neut % (Auto) 64.3, Lymph % (Auto) 23.7, Colbert % (Auto) 10.5 H, Eos % (Auto) 0.5, Baso % (Auto) 0.3, Absolute Neuts (auto) 8.9 H, Absolute Lymphs (auto) 3.27, Nucleated RBC % 0 03/10/19 19:20: Sodium 137, Potassium 3.7, Chloride 99, Carbon Dioxide 30.0, Anion Gap 8, BUN 20 H, Creatinine 1.00, Estim Creat Clear Calc 35.99, Est GFR (MDRD) Af Amer 70, Est GFR (MDRD) Non-Af 58 L, BUN/Creatinine Ratio 20.0, Glucose 105, Calcium 9.3 03/10/19 19:26: POC Glucose 89 03/11/19 05:16: WBC 14.7 H, RBC 4.02 L, Hgb 12.4, Hct 38.6, MCV 96.0, MCH 30.8, MCHC 32.1, RDW Std Deviation 50.8 H, RDW Coeff of Joey 14.4, Plt Count 327, MPV 10.6, Immature Gran % (Auto) 0.600, Neut % (Auto) 88.8 H, Lymph % (Auto) 8.5 L, Colbert % (Auto) 1.8, Eos % (Auto) 0.1, Baso % (Auto) 0.2, Absolute Neuts (auto) 13.1 H, Absolute Lymphs (auto) 1.25, Nucleated RBC % 0 03/11/19 05:16: Sodium 137, Potassium 4.2, Chloride 105, Carbon Dioxide 27.0, Anion Gap 5, BUN 19 H, Creatinine 0.67, Estim Creat Clear Calc 36.60, Est GFR (MDRD) Af Amer 110, Est GFR (MDRD) Non-Af 91, BUN/Creatinine Ratio 28.2 H, Glucose 102, Calcium 8.5, Total Bilirubin 1.10 H, AST 27, ALT 31, Alkaline Phosphatase 82, Total Protein 5.8 L, Albumin 2.6 L, Globulin 3.2, Albumin/Globulin Ratio 0.8 L 03/11/19 09:34: Lactic Acid 2.2 H* 03/11/19 09:44: Ammonia < 10.0 L 03/11/19 11:30: Urine Color Yellow, Urine Clarity Clear, Urine pH 6.0, Ur Specific [place] 1.020, Urine Protein 15 H, Urine Glucose (UA) Normal, Urine Ketones 150 H, Urine Occult Blood Negative, Urine Nitrite Negative, Urine Bilirubin Negative, Urine Urobilinogen Normal, Ur Leukocyte Esterase Negative, Urine RBC 0 SEEN, Urine WBC 0 SEEN, Ur Squamous Epith Cells 0 SEEN, Urine Bacteria 0 SEEN, Urine Mucus 0 SEEN 03/11/19 14:07: Lactic Acid 1.1 Current Medications Acetaminophen (Tylenol) 650 mg PO Q6H PRN PRN PRN Reason: Pain or Fever Albuterol/Ipratropium (Duoneb) 3 ml INHALATION Q4HWA.RT [facility] Last Admin: 03/11/19 14:26 Dose: 3 ml Documented by: Alendronate Sodium (Fosamax) 70 mg PO QWEEK [facility] Last Admin: 03/11/19 07:42 Dose: Not Given Documented by: Buspirone HCl (Buspar) 10 mg PO TID [facility] Last Admin: 03/11/19 12:12 Dose: Not Given Documented by: Clonidine (Catapres) 0.3 mg PO TID [facility] Last Admin: 03/11/19 12:12 Dose: Not Given Documented by: Heparin Sodium (Porcine) (Heparin Na) 5,000 unit SC BID [facility] Last Admin: 03/11/19 10:11 Dose: 5,000 unit Documented by: Hydralazine HCl (Apresoline Iv) 5 mg IV Q6H PRN PRN PRN Reason: BLOOD PRESSURE Last Admin: 03/11/19 13:18 Dose: 5 mg Documented by: Sodium Chloride () 250 mls @ 15 mls/hr IV .[id number] PRN PRN Reason: Saline Flush Sodium Chloride () 250 mls @ 15 mls/hr IV .[id number] PRN PRN Reason: Additional IVPB Infusion Dextrose/Sodium Chloride () 1,000 mls @ 100 mls/hr IV .Q10H [facility] Last Admin: 03/11/19 14:29 Dose: 100 mls/hr Documented by: Latanoprost (Xalatan Opthalmic) 1 drop OPHTHALMIC BID [facility] Last Admin: 03/11/19 10:11 Dose: 1 drop Documented by: Lidocaine (Lidoderm Patch) 2 patch TOPICAL DAILY [facility]; Protocol Last Admin: 03/11/19 11:23 Dose: 2 patch Documented by: Magnesium Hydroxide (Milk Of Magnesia) 30 ml PO DAILY PRN PRN PRN Reason: Constipation Methylprednisolone (Solu-Medrol) 40 mg IV Q8 [facility] Morphine Sulfate () 2 mg IV Q3H PRN PRN PRN Reason: Pain Score 6-10/10 Last Admin: 03/11/19 14:29 Dose: 2 mg Documented by: Multivitamins/Minerals (Multivitamin With Minerals) [facility] Last Admin: 03/11/19 09:05 Dose: Not Given Documented by: Ondansetron HCl (Zofran) 4 mg IV Q8H PRN PRN PRN Reason: NAUSEA/VOMITING Last Admin: 03/11/19 00:22 Dose: 4 mg Documented by: Oxycodone HCl (Oxyir) 5 mg PO Q4H PRN PRN PRN Reason: Pain Score 4-5/10 Pantoprazole Sodium (Protonix) 20 mg PO DAILY [facility] Last Admin: 03/11/19 09:35 Dose: Not Given Documented by: Psyllium Hydrophilic Mucilloid (Metamucil) 1 packet PO DAILY PRN PRN PRN Reason: Constipation Sodium Chloride () 10 - 40 ml IV UD PRN PRN Reason: SALINE FLUSH Last Admin: 03/11/19 13:17 Dose: 10 ml Documented by: Tizanidine HCl (Zanaflex) 4 mg PO Q8 [facility] Last Admin: 03/11/19 12:13 Dose: Not Given Documented by: STROKE Vital Signs/Narrative: Vital Signs Temp Pulse Resp BP Pulse Ox 03/11/19 15:00 98.3 F 110 H 27 H 136/63 H 97 03/11/19 14:26 112 H 28 H 03/11/19 14:17 98.3 F 106 H 22 H 126/68 H 96 03/11/19 13:18 91 164/83 H 03/11/19 13:03 98.3 F 94 16 164/83 H 98 Assessment/Plan This patient was seen in conjunction with Adam GLYNN. I have independently interviewed and examined the patient and reviewed pertinent history, examination findings, laboratory and plan of management. I have reviewed the note and agree with the documented findings with the few additional points. In brief, patient was initially admitted with acute on chronic back pain but today found to be tachypneic, tachycardic, lactic acidosis leukocytosis. Patient herself is confused and disoriented and cannot give history. No fever charted. Sepsis work-up ordered. ID was consulted. Not on antibiotic. Hand Rigger consulted but has not seen the patient yet. Patient has history of compression fracture of thoracic spine with osteoporosis probably secondary to chronic steroid use. Other rheumatology disease include history of psoriasis and Ravi's. As per H&P, possible RA but CCP and other autoimmune markers were negative. 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 Hand Rigger was called and left a voice message. I have discussed my assessment with Adam GLYNN and orders have been reviewed. Code Visit Inpatient E&M: 39411 Subs Hosp L3
--- NOTE | 2019-03-11 13:14 | CASEMGMT ---
Case Management Progress Note: This teletypewriter operator presented to patient bedside earlier to complete initial assessment, patient at the time appeared SOB-kept taking O2 NC off, Not sure of confusion as patient only was able to answer a couple questions with 1 word (yes or No) to verify some information. Will wait to complete initial assessment with patient at alternative time or with patient . CM to continue to follow for assessment and care coordination needs. Adv Directive information, In network HHC and In network SNF list left at bedside. Kristian Rodriguez RNCM
[2019-03-11 13:45] LABS: Reflex Lactate? Y
[2019-03-11] MEDS: Dext 5%-0.45% NS 1,000 ML 100 ML IV (14:29)
[2019-03-11 14:38] LABS: Lactic Acid 1.1 mmol/L (0.4-1.9)
--- NOTE | 2019-03-11 15:45 | PCM.HP.ID ---
Reason for Consult: leukocytosis Consulted by: Dr. Briceño History of Present Illness: The patient is a 73 year old F with pulm fibrosis, on pred and cellcept, presented to ED with severe back pain. No fever here. Had leukocytosis, lactic acidosis. Pt unable to provide history, no family at bedside. No abx started, cxs sent. Spine imaging showed T7, T8, and T11 fractures. ROS unobtainable due to mental status. - Medical History Past Medical History (Chronic Problems): Chronic Problems (Last Reviewed 02/07/17 @ 11:52 by Nawaf Ny) Edema of both legs (Chronic) Eczema (Chronic) Erythromelalgia (Chronic) Swelling of lower extremity (Chronic) Raynaud's phenomenon (Chronic) Psoriasis (Chronic) Pain in both lower legs (Chronic) Lumbar disc disease (Chronic) Hypertension (Chronic) Allergies/Adverse Reactions: Allergies cortisone Allergy (Verified 02/07/17 11:52) Swelling gluten Allergy (Verified 03/11/19 14:33) Abd cramps/diarrhea latex Allergy (Verified 02/07/17 11:52) Other WAS TOLD TO AVOID sulfamethoxazole [From Bactrim] Allergy (Verified 02/07/17 11:52) Other PROBLEMS SWALLOWING trimethoprim [From Bactrim] Allergy (Verified 02/07/17 11:52) Other PROBLEMS SWALLOWING sulfadimethoxine Adverse Reaction (Verified 02/07/17 11:52) Other I HAD TROUBLE WITHY MY THROAT Home Medications: Ambulatory Orders Medication Instructions Recorded RX: Clonidine HCl [Catapres] 0.3 mg PO TID 11/04/14 RX: Multivit-Min/FA/Lycopen/Lutein 1 ea PO DAILY 03/15/16 [Centrum Silver Tablet] RX: Potassium Chloride [Klor-Con] 20 meq PO DAILY 03/15/16 RX: Alendronate Sodium [Fosamax] 70 mg PO QWEEK 08/10/16 Acetaminophen with Codeine 1 - 2 tab PO Q6H PRN 03/10/19 [Acetaminophen-Cod #3 Tablet] Brinzolamide/Brimonid Tart 1 drp OP QHS 03/10/19 [Simbrinza 1%-0.2% Eye Drops] Latanoprost 0.005% [Xalatan 1 drp EACHEYE BID 03/10/19 Opthalmic] Mycophenolate Mofetil [Cellcept] 500 mg PO BID 03/10/19 Netarsudil Mesylate [Rhopressa] 2.5 ml EACHEYE QHS 03/10/19 Omeprazole [Prilosec] 20 mg PO DAILY 03/10/19 Prednisone [Deltasone] 30 mg PO DAILY 03/10/19 RX: Buspirone HCl 10 mg PO TID 03/10/19 RX: Tizanidine HCl 4 mg PO Q8H 03/10/19 - Social History SMOKING STATUS:: Former smoker Vital Signs Temp Pulse Resp BP Pulse Ox 98.3 F 112 H 28 H 126/68 H 96 03/11/19 14:17 03/11/19 14:26 03/11/19 14:26 03/11/19 14:17 03/11/19 14:17 Oxygen Flow Rate (L/min) 2 Oxygen Delivery Method Nasal Cannula Weight: 46.5 kg Body Mass Index (BMI) 21.3 Finger Stick Blood Glucose 89 Laboratory Tests Past 24 Hrs 03/10/19 03/10/19 03/11/19 19:20 19:20 05:16 WBC 13.8 H 14.7 H RBC 4.69 4.02 L Hgb 14.6 12.4 Hct 45.1 38.6 MCV 96.2 96.0 MCH 31.1 30.8 MCHC 32.4 32.1 RDW Std Deviation 50.4 H 50.8 H RDW Coeff of Joey 14.5 14.4 Plt Count 381 327 MPV 10.2 10.6 Immature Gran % (Auto) 0.700 0.600 Neut % (Auto) 64.3 88.8 H Lymph % (Auto) 23.7 8.5 L [place] % (Auto) 10.5 H 1.8 Eos % (Auto) 0.5 0.1 Baso % (Auto) 0.3 0.2 Absolute Neuts (auto) 8.9 H 13.1 H Absolute Lymphs (auto) 3.27 1.25 Nucleated RBC % 0 0 Sodium 137 Potassium 3.7 Chloride 99 Carbon Dioxide 30.0 Anion Gap 8 BUN 20 H Creatinine 1.00 Estim Creat Clear Calc 35.99 Est GFR (MDRD) Af Amer 70 Est GFR (MDRD) Non-Af 58 L BUN/Creatinine Ratio 20.0 Glucose 105 Lactic Acid Calcium 9.3 Total Bilirubin AST ALT Alkaline Phosphatase Ammonia Total Protein Albumin Globulin Albumin/Globulin Ratio Urine Color Urine Clarity Urine pH Ur Specific [place] Urine Protein Urine Glucose (UA) Urine Ketones Urine Occult Blood Urine Nitrite Urine Bilirubin Urine Urobilinogen Ur Leukocyte Esterase Urine RBC Urine WBC Ur Squamous Epith Cells Urine Bacteria Urine Mucus 03/11/19 03/11/19 03/11/19 05:16 09:34 09:44 WBC RBC Hgb Hct MCV MCH MCHC RDW Std Deviation RDW Coeff of Joey Plt Count MPV Immature Gran % (Auto) Neut % (Auto) Lymph % (Auto) [place] % (Auto) Eos % (Auto) Baso % (Auto) Absolute Neuts (auto) Absolute Lymphs (auto) Nucleated RBC % Sodium 137 Potassium 4.2 Chloride 105 Carbon Dioxide 27.0 Anion Gap 5 BUN 19 H Creatinine 0.67 Estim Creat Clear Calc 36.60 Est GFR (MDRD) Af Amer 110 Est GFR (MDRD) Non-Af 91 BUN/Creatinine Ratio 28.2 H Glucose 102 Lactic Acid 2.2 H* Calcium 8.5 Total Bilirubin 1.10 H AST 27 ALT 31 Alkaline Phosphatase 82 Ammonia < 10.0 L Total Protein 5.8 L Albumin 2.6 L Globulin 3.2 Albumin/Globulin Ratio 0.8 L Urine Color Urine Clarity Urine pH Ur Specific [place] Urine Protein Urine Glucose (UA) Urine Ketones Urine Occult Blood Urine Nitrite Urine Bilirubin Urine Urobilinogen Ur Leukocyte Esterase Urine RBC Urine WBC Ur Squamous Epith Cells Urine Bacteria Urine Mucus 03/11/19 03/11/19 11:30 14:07 WBC RBC Hgb Hct MCV MCH MCHC RDW Std Deviation RDW Coeff of Joey Plt Count MPV Immature Gran % (Auto) Neut % (Auto) Lymph % (Auto) [place] % (Auto) Eos % (Auto) Baso % (Auto) Absolute Neuts (auto) Absolute Lymphs (auto) Nucleated RBC % Sodium Potassium Chloride Carbon Dioxide Anion Gap BUN Creatinine Estim Creat Clear Calc Est GFR (MDRD) Af Amer Est GFR (MDRD) Non-Af BUN/Creatinine Ratio Glucose Lactic Acid 1.1 Calcium Total Bilirubin AST ALT Alkaline Phosphatase Ammonia Total Protein Albumin Globulin Albumin/Globulin Ratio Urine Color Yellow Urine Clarity Clear Urine pH 6.0 Ur Specific [place] 1.020 Urine Protein 15 H Urine Glucose (UA) Normal Urine Ketones 150 H Urine Occult Blood Negative Urine Nitrite Negative Urine Bilirubin Negative Urine Urobilinogen Normal Ur Leukocyte Esterase Negative Urine RBC 0 SEEN Urine WBC 0 SEEN Ur Squamous Epith Cells 0 SEEN Urine Bacteria 0 SEEN Urine Mucus 0 SEEN - Other Studies Radiology: [] reviewed Other Studies: [] Route of nutrition/ use of supplements: [] Nutritional Intake: [] IV Site: [] James Catheter: [] - Physical Exam General: Non-Cooperative, - - ill appearing HEENT: PERRLA, EOMI Neck: Supple, No Nodes Lungs: - - coarse bilat Cardiovascular: Tachycardic Abdomen: Soft, Non Tender, Non-Distended Extremities: No edema Skin: - - mild erythema over heels, thomas IV Site: Peripheral, without redness - Assessment/Plan Antibiotics: [] Assessment/Plan: [] Active and Suspected Problems (Last Reviewed 02/07/17 @ 11:52 by Nawaf Ny) Intractable back pain (Acute) Compression fracture of T7 vertebra (Acute) Leukocytosis and lactic acidosis may be explained by pain, fractures, and chronic steroids. She is immunosuppressed, though. Cxs pending. Pulm to see. Cont to monitor off of abx. Will follow, thank you, d/w primary team.
[2019-03-11] MEDS: BRINZOLAMIDE/BRIMONID TART 1 DROP DROPS.SUSP 1 DRP EACH EYE (22:08)
[2019-03-12] VITALS (17 sets, daily range): BP systolic 137–189; BP diastolic 66–92; PULSE 76–113; RESP 17–26; TEMP 36.3–37.2; O2SAT 95–99
[2019-03-12] MEDS: Dext 5%-0.45% NS 1,000 ML 100 ML IV (00:33)
[2019-03-12] MEDS: Morphine 2 MG/ML Syringe IV ×3 (02:41→10:52)
[2019-03-12] MEDS: hydrALAZINE 20 MG/ML Vial 5 MG IV ×2 (05:09→12:23)
[2019-03-12] MEDS: LORazepam 2 MG/ML Syringe 0.5 MG IV (05:59)
[2019-03-12 06:05] LABS: Absolute Lymphocyte Count 1.53 X10^3/uL (0.83-4.51); Absolute Neutrophil Count 11.7 X10^3/uL (2.0-7.7); Basophil# 0.02 X10^3/uL; Basophil% 0.1 % (0-1); Hematocrit 39.3 % (37-47); Hemoglobin 12.9 g/dL (12.0-15.0); Lymphocyte # 1.53 X10^3/ul (4.0); Lymphocyte % 10.7 % (19-41); Mean Corp Hgb Conc 32.8 g/dL (32-36); Mean Corpuscular Hgb 31.2 pg (27.0-32.0); Mean Corpuscular Volume 94.9 fL (81-99); Mean Platelet Vol. 10.2 fl (6.2-12.0); Monocyte# 0.99 X10^3/uL; Monocyte% 6.9 % (0-10); NRBC Flagged by Analyzer 0 % (0-5); Neutrophil # 11.68 X10^3/uL (2.7-7.7); Neutrophil % 81.7 % (47-70); Platelet Count 369 K/mm3 (150-450); RBC Distribution Width CV 14.6 % (11.6-14.6); RBC Distribution Width SD 50.6 fl (35.1-43.9); Red Blood Count 4.14 M/mm3 (4.2-5.4); White Blood Count 14.3 K/mm3 (4.4-11.0)
[2019-03-12 06:31] LABS: Anion Gap 4 (5-15); BUN 16 mg/dL (7-18); BUN/Creat Ratio 21.1 RATIO (10-20); Calcium,Total 8.9 mg/dL (8.5-10.1); Chloride 103 mmol/L (98-107); Creatinine, Serum 0.76 mg/dL (0.55-1.02); EST Glomerular Filtration Rate 79 mL/min (>60); Est Glom Filt Rate - Afr Amer 96 mL/min (>60); Estimated Creatinine Clearance 37.49 ml/min; Glucose 156 mg/dL (74-106); Potassium 3.9 mmol/L (3.5-5.1); Sodium Level 133 mmol/L (136-145)
[2019-03-12] MEDS: Ipratropium/Albuterol Sulfate 3 ML AMPUL.NEB INHALATION ×4 (06:36→18:36)
[2019-03-12] MEDS: Lidocaine 5% Patch 2 PATCH TOPICAL (08:42)
[2019-03-12] MEDS: 0.9% Saline Lock 10 ML Syringe IV (08:43)
[2019-03-12] MEDS: Latanoprost 0.005% 1 Bottle 1 DRP OPHTHALMIC ×2 (08:51→21:43)
[2019-03-12] MEDS: Dextrose 5%/0.9% NaCl 1,000 ML 100 ML IV ×2 (09:46→18:10)
--- NOTE | 2019-03-12 09:54 | PCM.PN.ID ---
Patient Problems: Active and Suspected Problems (Last Reviewed 02/07/17 @ 11:52 by Nawaf Ny) Intractable back pain (Acute) Compression fracture of T7 vertebra (Acute) Subjective: Feeling better, pain controlled, no fever, family at bedside - Physical Exam Vitals/I&O's: Vital Signs Temp Pulse Resp BP Pulse Ox 98.1 F 113 H 20 H 145/66 H 96 03/12/19 06:00 03/12/19 06:53 03/12/19 06:36 03/12/19 06:00 03/12/19 06:36 Oxygen Flow Rate (L/min) 2 Oxygen Delivery Method Nasal Cannula Weight: 47.4 kg Body Mass Index (BMI) 21.3 Finger Stick Blood Glucose 89 Intake and Output for Last 24 Hours 03/10/19 03/11/19 03/12/19 23:59 23:59 23:59 Intake Total 500 / 500 3045 / 3045 971.67 / 971.67 Output Total 1750 / 1750 300 / 300 Balance 500 / 500 1295 / 1295 671.67 / 671.67 General: Alert, No apparent distress Lungs: Clear to auscultation, Normal air movement Cardiovascular: Regular rate, Regular Rhythm Abdomen: Soft, Non Tender, Non-Distended Skin: Rash Present - erythema on legs Laboratory Results 03/11/19 09:34: Lactic Acid 2.2 H* 03/11/19 09:44: Ammonia < 10.0 L 03/11/19 11:30: Urine Color Yellow, Urine Clarity Clear, Urine pH 6.0, Ur Specific [place] 1.020, Urine Protein 15 H, Urine Glucose (UA) Normal, Urine Ketones 150 H, Urine Occult Blood Negative, Urine Nitrite Negative, Urine Bilirubin Negative, Urine Urobilinogen Normal, Ur Leukocyte Esterase Negative, Urine RBC 0 SEEN, Urine WBC 0 SEEN, Ur Squamous Epith Cells 0 SEEN, Urine Bacteria 0 SEEN, Urine Mucus 0 SEEN 03/11/19 14:07: Lactic Acid 1.1 03/12/19 05:39: WBC 14.3 H, RBC 4.14 L, Hgb 12.9, Hct 39.3, MCV 94.9, MCH 31.2, MCHC 32.8, RDW Std Deviation 50.6 H, RDW Coeff of Joey 14.6, Plt Count 369, MPV 10.2, Immature Gran % (Auto) 0.600, Neut % (Auto) 81.7 H, Lymph % (Auto) 10.7 L, [place] % (Auto) 6.9, Eos % (Auto) 0.0, Baso % (Auto) 0.1, Absolute Neuts (auto) 11.7 H, Absolute Lymphs (auto) 1.53, Nucleated RBC % 0 03/12/19 05:39: Sodium 133 L, Potassium 3.9, Chloride 103, Carbon Dioxide 26.0, Anion Gap 4 L, BUN 16, Creatinine 0.76, Estim Creat Clear Calc 37.49, Est GFR (MDRD) Af Amer 96, Est GFR (MDRD) Non-Af 79, BUN/Creatinine Ratio 21.1 H, Glucose 156 H, Calcium 8.9 Current Medications Acetaminophen (Tylenol) 650 mg PO Q6H PRN PRN PRN Reason: Pain or Fever Albuterol/Ipratropium (Duoneb) 3 ml INHALATION Q4HWA.RT [facility] Last Admin: 03/12/19 06:36 Dose: 3 ml Documented by: Alendronate Sodium (Fosamax) 70 mg PO QWEEK [facility] Last Admin: 03/11/19 07:42 Dose: Not Given Documented by: Buspirone HCl (Buspar) 10 mg PO TID [facility] Last Admin: 03/12/19 05:08 Dose: Not Given Documented by: Clonidine (Catapres) 0.3 mg PO TID [facility] Last Admin: 03/12/19 05:09 Dose: Not Given Documented by: Heparin Sodium (Porcine) (Heparin Na) 5,000 unit SC BID [facility] Last Admin: 03/11/19 22:13 Dose: 5,000 unit Documented by: Hydralazine HCl (Apresoline Iv) 5 mg IV Q6H PRN PRN PRN Reason: BLOOD PRESSURE Last Admin: 03/12/19 05:09 Dose: 5 mg Documented by: Sodium Chloride () 250 mls @ 15 mls/hr IV .[id number] PRN PRN Reason: Saline Flush Sodium Chloride () 250 mls @ 15 mls/hr IV .[id number] PRN PRN Reason: Additional IVPB Infusion Dextrose/Sodium Chloride (Dextrose 5%/0.9% Nacl) 1,000 mls @ 100 mls/hr IV .Q10H [facility] Last Admin: 03/12/19 09:46 Dose: 100 mls/hr Documented by: Latanoprost (Xalatan Opthalmic) 1 drop OPHTHALMIC BID [facility] Last Admin: 03/12/19 08:51 Dose: 1 drop Documented by: Lidocaine (Lidoderm Patch) 2 patch TOPICAL DAILY [facility]; Protocol Last Admin: 03/12/19 08:42 Dose: 2 patch Documented by: Lorazepam (Ativan) 0.5 mg IV Q6H PRN PRN PRN Reason: ANXIETY Last Admin: 03/12/19 05:59 Dose: 0.5 mg Documented by: Magnesium Hydroxide (Milk Of Magnesia) 30 ml PO DAILY PRN PRN PRN Reason: Constipation Methylprednisolone (Solu-Medrol) 40 mg IV Q8 [facility] Last Admin: 03/12/19 05:12 Dose: 40 mg Documented by: Morphine Sulfate () 2 mg IV Q3H PRN PRN PRN Reason: Pain Score 6-10/10 Last Admin: 03/12/19 06:27 Dose: 2 mg Documented by: Multivitamins/Minerals (Multivitamin With Minerals) 1 tablet PO DAILYCM [facility] Last Admin: 03/11/19 09:05 Dose: Not Given Documented by: Ondansetron HCl (Zofran) 4 mg IV Q8H PRN PRN PRN Reason: NAUSEA/VOMITING Last Admin: 03/11/19 00:22 Dose: 4 mg Documented by: Oxycodone HCl (Oxyir) 5 mg PO Q4H PRN PRN PRN Reason: Pain Score 4-5/10 Pantoprazole Sodium (Protonix) 20 mg PO DAILY [facility] Last Admin: 03/11/19 09:35 Dose: Not Given Documented by: Psyllium Hydrophilic Mucilloid (Metamucil) 1 packet PO DAILY PRN PRN PRN Reason: Constipation Sodium Chloride () 10 - 40 ml IV UD PRN PRN Reason: SALINE FLUSH Last Admin: 03/12/19 08:43 Dose: 10 ml Documented by: Tizanidine HCl (Zanaflex) 4 mg PO Q8 [facility] Last Admin: 03/12/19 05:09 Dose: Not Given Documented by: Medical Necessity - Tobacco Use Smoking Status: Former smoker Tobacco Use: Non-smoker Route of nutrition/ use of supplements: [] Nutritional Intake: [] IV Site: [] James Catheter: [] - Assessment/Plan Antibiotics: [] Assessment/Plan: [] Active and Suspected Problems (Last Reviewed 02/07/17 @ 11:52 by Nawaf Ny) Intractable back pain (Acute) Compression fracture of T7 vertebra (Acute) Leukocytosis and lactic acidosis may be explained by pain, fractures, and chronic steroids. She is immunosuppressed. Cxs neg so far, no fever, feeling better. Cont to monitor off of abx. Will follow as needed, please call with any ?s
[2019-03-12 11:02] LABS: Thyroid Stim Hormone (TSH) 0.61 uIU/mL (0.358-3.74)
--- NOTE | 2019-03-12 11:48 | PN_ITS ---
<Adam Rudolph - Last Filed: 03/12/19 11:48> Patient Problems: Active and Suspected Problems (Last Reviewed 02/07/17 @ 11:52 by Nawaf Ny) Intractable back pain (Acute) Compression fracture of T7 vertebra (Acute) Reason for Visit: back pain Subjective: Pt A/Ox1. Still very anxious, restless, tremulous. Negative ROS however with her confusion subjective is unreliable. states she gets this way when her back pain is severe. Denies cough/sob/fevers/chills/back pain/nausea/vomiting/ diarrhea/dysuria. Vitals/I&O's: Vital Signs Temp Pulse Resp BP Pulse Ox 98.1 F 108 H 20 H 145/66 H 96 03/12/19 06:00 03/12/19 11:02 03/12/19 11:02 03/12/19 06:00 03/12/19 06:36 Oxygen Flow Rate (L/min) 2.5 Oxygen Delivery Method Nasal Cannula Weight: 104 lb 7.986 oz Body Mass Index (BMI) 21.3 Finger Stick Blood Glucose 89 Intake and Output for Last 24 Hours 03/10/19 03/11/19 03/12/19 23:59 23:59 23:59 Intake Total 500 / 500 3045 / 3045 971.67 / 971.67 Output Total 1750 / 1750 300 / 300 Balance 500 / 500 1295 / 1295 671.67 / 671.67 General: Alert, Confused, Disoriented HEENT: Atraumatic, PERRLA, EOMI, Normocephalic Neck: Supple, No JVD, Negative Carotid Bruits Lungs: Normal air movement, No rales Cardiovascular: No murmurs, Tachycardic Abdomen: Bowel Sounds Present, Soft, Non Tender Extremities: No edema, Capillary Refill Less than 3 Seconds Skin: No rashes, No breakdown Musculoskeletal: No Tenderness to Palpation of Joints or Extremities Neurological: Cranial nerves II-XII grossly intact Psych/Mental Status: Normal Affect, Appropriate, Alert and oriented to time, place, person, mood and affect Microbiology Past 72 Hours 03/11/19 11:30 Urine Catheter - Catheter Urine Culture - Preliminary Culture exhibits no growth. Laboratory Results 03/11/19 11:30: Urine Color Yellow, Urine Clarity Clear, Urine pH 6.0, Ur Specific [place] 1.020, Urine Protein 15 H, Urine Glucose (UA) Normal, Urine Ketones 150 H, Urine Occult Blood Negative, Urine Nitrite Negative, Urine Bilirubin Negative, Urine Urobilinogen Normal, Ur Leukocyte Esterase Negative, Urine RBC 0 SEEN, Urine WBC 0 SEEN, Ur Squamous Epith Cells 0 SEEN, Urine Bacteria 0 SEEN, Urine Mucus 0 SEEN 03/11/19 14:07: Lactic Acid 1.1 03/12/19 05:39: WBC 14.3 H, RBC 4.14 L, Hgb 12.9, Hct 39.3, MCV 94.9, MCH 31.2, MCHC 32.8, RDW Std Deviation 50.6 H, RDW Coeff of Joey 14.6, Plt Count 369, MPV 10.2, Immature Gran % (Auto) 0.600, Neut % (Auto) 81.7 H, Lymph % (Auto) 10.7 L, [facility] % (Auto) 6.9, Eos % (Auto) 0.0, Baso % (Auto) 0.1, Absolute Neuts (auto) 11.7 H, Absolute Lymphs (auto) 1.53, Nucleated RBC % 0 03/12/19 05:39: Sodium 133 L, Potassium 3.9, Chloride 103, Carbon Dioxide 26.0, Anion Gap 4 L, BUN 16, Creatinine 0.76, Estim Creat Clear Calc 37.49, Est GFR (MDRD) Af Amer 96, Est GFR (MDRD) Non-Af 79, BUN/Creatinine Ratio 21.1 H, Glucose 156 H, Calcium 8.9 03/12/19 10:04: Cortisol 6.90 03/12/19 10:04: TSH 0.61 Current Medications Acetaminophen (Tylenol) 650 mg PO Q6H PRN PRN PRN Reason: Pain or Fever Albuterol/Ipratropium (Duoneb) 3 ml INHALATION Q4HWA.RT [facility] Last Admin: 03/12/19 11:02 Dose: 3 ml Documented by: Alendronate Sodium (Fosamax) 70 mg PO QWEEK [facility] Last Admin: 03/11/19 07:42 Dose: Not Given Documented by: Buspirone HCl (Buspar) 10 mg PO TID [facility] Last Admin: 03/12/19 05:08 Dose: Not Given Documented by: Clonidine (Catapres) 0.3 mg PO TID [facility] Last Admin: 03/12/19 05:09 Dose: Not Given Documented by: Hydralazine HCl (Apresoline Iv) 5 mg IV Q6H PRN PRN PRN Reason: BLOOD PRESSURE Last Admin: 03/12/19 05:09 Dose: 5 mg Documented by: Sodium Chloride () 250 mls @ 15 mls/hr IV .[id number] PRN PRN Reason: Saline Flush Sodium Chloride () 250 mls @ 15 mls/hr IV .[id number] PRN PRN Reason: Additional IVPB Infusion Dextrose/Sodium Chloride (Dextrose 5%/0.9% Nacl) 1,000 mls @ 100 mls/hr IV .Q10H [facility] Last Admin: 03/12/19 09:46 Dose: 100 mls/hr Documented by: Latanoprost (Xalatan Opthalmic) 1 drop OPHTHALMIC BID [facility] Last Admin: 03/12/19 08:51 Dose: 1 drop Documented by: Lidocaine (Lidoderm Patch) 2 patch TOPICAL DAILY [facility]; Protocol Last Admin: 03/12/19 08:42 Dose: 2 patch Documented by: Lorazepam (Ativan) 0.5 mg IV Q6H PRN PRN PRN Reason: ANXIETY Last Admin: 03/12/19 05:59 Dose: 0.5 mg Documented by: Magnesium Hydroxide (Milk Of Magnesia) 30 ml PO DAILY PRN PRN PRN Reason: Constipation Methylprednisolone (Solu-Medrol) 20 mg IV DAILY [facility] Morphine Sulfate () 2 mg IV Q3H PRN PRN PRN Reason: Pain Score 6-10/10 Last Admin: 03/12/19 10:52 Dose: 2 mg Documented by: Multivitamins/Minerals (Multivitamin With Minerals) [facility] Last Admin: 03/11/19 09:05 Dose: Not Given Documented by: Ondansetron HCl (Zofran) 4 mg IV Q8H PRN PRN PRN Reason: NAUSEA/VOMITING Last Admin: 03/11/19 00:22 Dose: 4 mg Documented by: Oxycodone HCl (Oxyir) 5 mg PO Q4H PRN PRN PRN Reason: Pain Score 4-5/10 Pantoprazole Sodium (Protonix) 20 mg PO DAILY [facility] Last Admin: 03/11/19 09:35 Dose: Not Given Documented by: Psyllium Hydrophilic Mucilloid (Metamucil) 1 packet PO DAILY PRN PRN PRN Reason: Constipation Sodium Chloride () 10 - 40 ml IV UD PRN PRN Reason: SALINE FLUSH Last Admin: 03/12/19 08:43 Dose: 10 ml Documented by: Tizanidine HCl (Zanaflex) 4 mg PO Q8 [facility] Last Admin: 03/12/19 05:09 Dose: Not Given Documented by: STROKE Vital Signs/Narrative: Vital Signs Pulse Resp 03/12/19 11:02 108 H 20 H Medical Necessity - Tobacco Use Smoking Status: Former smoker Tobacco Use: Non-smoker Assessment/Plan All Active Problems (Last Reviewed 02/07/17 @ 11:52 by Nawaf Ny) Intractable back pain (Acute) Compression fracture of T7 vertebra (Acute) Hyponatremia (Acute) Abdominal pain (Acute) 1. Suspected acute severe sepsis - pt immunocompromised on 3 months prednisone and started cellcept last week. + leukocytosis (however is on chronic steroids), lactic acidosis, tachypnea, tachycardia. CXR without acute change. At baseline o2. CT brain pending. T bili mildly elevated. UA negative. Blood cx pending. ID consulted. -This may be related to severe back pain. -Dr. Patel plans to take her for an epidural tomorrow AM. 2. Acute metabolic encephalopathy 2/2 above - A/Ox2. She remains NPO as speech found her unable to follow commands to test swallowing. TSH and cortisol normal. 3. Osteoporosis with compression fractures T spine - PTOT. chronic back pain. complicated by chronic prednisone use. She does take alendronate at home. 4. Chronic hypoxic resp failure 2/2 interstitial lung dz/pulmonary fibrosis - no acute change on cxr, o2 demand, no cough or SOB. Her mixing plant operator, Dr. Engle, was consulted. 5. Hx psoriasis, reynauds, RA, interstitial lung disease related to RA - wound care following for LE wounds. again, on cellcept / chronic steroids. Her rheumatoid panel on chart is inconclusive for specific rheum disorder. Cellcept is held with concern for #1. 6. HTN - likely more anxiety mediated. Pt was highly agitated after receiving small dose ativan BP improved. Defer further htn management until CT brain back. DVT ppx: heparin held for epidural. SCDs. DC planning: PTOT, may need placement This patient was seen by Adam Rudolph PA-C under the supervision of Dr. Briceño. <Miguel Briceño - Last Filed: 03/12/19 14:30> Reason for Visit: Confusion, disorientation, back pain and mild respiratory distress intermittently Subjective: Patient still gets confused and disoriented x3. Not able to answer completely but yes or no. Discussed with the mixing plant operator Dr. Engle and he thinks patient is in pain because of thoracic vertebral fracture and osteoporosis and needs epidural analgesia. No cough, shortness of breath or fever or chills. Vitals/I&O's: Vital Signs Temp Pulse Resp BP Pulse Ox 99.0 F 111 H 19 H 165/74 H 99 03/12/19 12:00 03/12/19 12:23 03/12/19 12:00 03/12/19 13:45 03/12/19 12:00 Oxygen Flow Rate (L/min) 3 Oxygen Delivery Method Nasal Cannula Weight: 104 lb 7.986 oz Body Mass Index (BMI) 21.3 Finger Stick Blood Glucose 89 Intake and Output for Last 24 Hours 03/10/19 03/11/19 03/12/19 23:59 23:59 23:59 Intake Total 500 / 500 3045 / 3045 971.67 / 971.67 Output Total 1750 / 1750 575 / 575 Balance 500 / 500 1295 / 1295 396.67 / 396.67 General: Confused, Disoriented, Lethargic HEENT: Atraumatic, PERRLA, EOMI, Normocephalic Oral: Dry Mucosa Neck: Supple, No JVD, Negative Carotid Bruits Lungs: Diminished - Air entry severely diminished in all lung heard., Rales - Bilateral inspiratory rales present. Interstitial lung disease, Short of Breath Cardiovascular: Regular rate, No murmurs Abdomen: Bowel Sounds Present, Soft, Non Tender, Non-Distended Extremities: No edema, Capillary Refill Less than 3 Seconds Skin: No rashes, No breakdown Musculoskeletal: Arthritic Changes, Tenderness - Upper thoracic vertebra Neurological: Cranial nerves II-XII grossly intact, Deep Tendon Reflexes 2+/4 and Symmetrical, Neuro grossly intact Psych/Mental Status: Normal Affect, Appropriate Microbiology Past 72 Hours 03/11/19 11:30 Urine Catheter - Catheter Urine Culture - Preliminary Culture exhibits no growth. Laboratory Results 03/11/19 14:07: Lactic Acid 1.1 03/12/19 05:39: WBC 14.3 H, RBC 4.14 L, Hgb 12.9, Hct 39.3, MCV 94.9, MCH 31.2, MCHC 32.8, RDW Std Deviation 50.6 H, RDW Coeff of Joey 14.6, Plt Count 369, MPV 10.2, Immature Gran % (Auto) 0.600, Neut % (Auto) 81.7 H, Lymph % (Auto) 10.7 L, [facility] % (Auto) 6.9, Eos % (Auto) 0.0, Baso % (Auto) 0.1, Absolute Neuts (auto) 11.7 H, Absolute Lymphs (auto) 1.53, Nucleated RBC % 0 03/12/19 05:39: Sodium 133 L, Potassium 3.9, Chloride 103, Carbon Dioxide 26.0, Anion Gap 4 L, BUN 16, Creatinine 0.76, Estim Creat Clear Calc 37.49, Est GFR (MDRD) Af Amer 96, Est GFR (MDRD) Non-Af 79, BUN/Creatinine Ratio 21.1 H, Glucose 156 H, Calcium 8.9 03/12/19 10:04: Cortisol 6.90 03/12/19 10:04: TSH 0.61 Current Medications Acetaminophen (Tylenol) 650 mg PO Q6H PRN PRN PRN Reason: Pain or Fever Albuterol/Ipratropium (Duoneb) 3 ml INHALATION Q4HWA.RT [facility] Last Admin: 03/12/19 11:02 Dose: 3 ml Documented by: Alendronate Sodium (Fosamax) 70 mg PO QWEEK [facility] Last Admin: 03/11/19 07:42 Dose: Not Given Documented by: Buspirone HCl (Buspar) 10 mg PO TID [facility] Last Admin: 03/12/19 13:39 Dose: 10 mg Documented by: Clonidine (Catapres) 0.3 mg PO TID [facility] Last Admin: 03/12/19 13:39 Dose: 0.3 mg Documented by: Hydralazine HCl (Apresoline Iv) 5 mg IV Q6H PRN PRN PRN Reason: BLOOD PRESSURE Last Admin: 03/12/19 12:23 Dose: 5 mg Documented by: Sodium Chloride () 250 mls @ 15 mls/hr IV .[id number] PRN PRN Reason: Saline Flush Sodium Chloride () 250 mls @ 15 mls/hr IV .[id number] PRN PRN Reason: Additional IVPB Infusion Dextrose/Sodium Chloride (Dextrose 5%/0.9% Nacl) 1,000 mls @ 100 mls/hr IV .Q10H [facility] Last Admin: 03/12/19 09:46 Dose: 100 mls/hr Documented by: Latanoprost (Xalatan Opthalmic) 1 drop OPHTHALMIC BID [facility] Last Admin: 03/12/19 08:51 Dose: 1 drop Documented by: Lidocaine (Lidoderm Patch) 2 patch TOPICAL DAILY [facility]; Protocol Last Admin: 03/12/19 08:42 Dose: 2 patch Documented by: Lorazepam (Ativan) 0.5 mg IV Q6H PRN PRN PRN Reason: ANXIETY Last Admin: 03/12/19 05:59 Dose: 0.5 mg Documented by: Magnesium Hydroxide (Milk Of Magnesia) 30 ml PO DAILY PRN PRN PRN Reason: Constipation Methylprednisolone (Solu-Medrol) 20 mg IV DAILY [facility] Morphine Sulfate () 2 mg IV Q3H PRN PRN PRN Reason: Pain Score 6-10/10 Last Admin: 03/12/19 10:52 Dose: 2 mg Documented by: Multivitamins/Minerals (Multivitamin With Minerals) [facility] Last Admin: 03/12/19 13:50 Dose: Not Given Documented by: Ondansetron HCl (Zofran) 4 mg IV Q8H PRN PRN PRN Reason: NAUSEA/VOMITING Last Admin: 03/11/19 00:22 Dose: 4 mg Documented by: Oxycodone HCl (Oxyir) 5 mg PO Q4H PRN PRN PRN Reason: Pain Score 4-5/10 Pantoprazole Sodium (Protonix) 20 mg PO DAILY [facility] Last Admin: 03/12/19 13:50 Dose: Not Given Documented by: Psyllium Hydrophilic Mucilloid (Metamucil) 1 packet PO DAILY PRN PRN PRN Reason: Constipation Sodium Chloride () 10 - 40 ml IV UD PRN PRN Reason: SALINE FLUSH Last Admin: 03/12/19 08:43 Dose: 10 ml Documented by: Sodium Chloride ([place] Nasal [place]) 1 spray NASAL BID PRN PRN PRN Reason: NASAL DRYNESS Tizanidine HCl (Zanaflex) 4 mg PO Q8 [facility] Last Admin: 03/12/19 13:39 Dose: 4 mg Documented by: STROKE Vital Signs/Narrative: Vital Signs Temp Pulse Resp BP BP Pulse Ox 03/12/19 13:45 165/74 H 03/12/19 12:23 111 H 03/12/19 12:00 99.0 F 107 H 19 H 188/87 H 99 03/12/19 11:02 108 H 20 H Assessment/Plan This patient was seen in conjunction with Adam GLYNN. I have independently interviewed and examined the patient and reviewed pertinent history, examination findings, laboratory and plan of management. I have reviewed the note and agree with the documented findings with the few additional points. In brief, patient was initially admitted with acute on chronic back pain but today found to be tachypneic, tachycardic, lactic acidosis leukocytosis. Patient herself is confused and disoriented and cannot give history. No fever charted. Sepsis work-up ordered. ID was consulted. Not on antibiotic. Patient has history of compression fracture of thoracic spine with osteoporosis probably secondary to chronic steroid use. 03/12/2019: Urine culture is negative. Blood cultures x2. Patient has leukocytosis and possible lactic acidosis secondary to pain, fracture and chronic steroid therapy. Severe sepsis/sepsis ruled out on 03/11/2019. No fever or chills. Discussed with the mixing plant operator Dr. Engle. He has seen the patient in the evening on 03/11 2019 but no official consult note. He suggested tapering of the prednisone dose 30 mg daily. Does not think patient is confused or encephalopathic secondary to CellCept. Patient was on CellCept for pulmonary fibrosis Pain management as per surgery consulted for epidural analgesia thoracic tibial fracture for pain relief. And there is no official note of pain management but it seems that Dr. Patel has seen the patient. Other rheumatology disease include history of psoriasis and Raynaud's osteoporosis. Patient previous autoimmune markers including CCP were negative. 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 I have discussed my assessment with Adam GLYNN and orders have been reviewed. Code Visit Inpatient E&M: 40191 Subs Hosp L3
--- NOTE | 2019-03-12 12:15 | CASEMGMT ---
RN CM Assessment Presentation: Back pain due to acute T7 compression fractures Intro role of CM and purpose of RN CM assessment to patient's . Pt with confusion, unable to participate in assessment at this time. Demographics, PCP and Pharmacy verified. Pt had been generally independent @ home. states she was able to stand/walk for short periods, could make her breakfast, shower and did laundry. able to assist with other household needs. -Spoke with re: PT/OT evaluations. Pt to have epidural tomorrow, but recommendation was further therapy- pt may need SNF. Has list of [facility] facilities in room. is agreeable to discuss further. SW consult. PCP: Dr. Luís Dorsey Specialists: Dr. Hill Preferred Pharmacy: [facility] Insurance: [facility] Medicare Prescription Benefit: yes LNOK: Daniel Moura Living Arrangements: Lives with her in one story home. 3 steps into home. Transportation: drives DME: wheeled walker, was not using prior. Home oxygen through [facility]. 2.5L NC continuous, concentrator and portability. HHC/SNF: none SW Referral: yes, possible need for SNF on discharge Patient DC goals: Home DC PLAN: undetermined. SW to evaluate for SNF placement. Gab CAI RN ACM
--- NOTE | 2019-03-12 13:02 | CASEMGMT ---
Social Work Received referral from RN GWENDOLYN that pt will likely need a SNF upon d/c. SW met with pt and two daughters. SW discussed d/c plan and is agreeable to SNF. Written list of in network SNFs provided. First choice is [facility] and spouse will consider list and make second and third choice. Phone call to [facility] in TCU and they currently do not have beds available but pt name placed on TCU list if bed should become available. SW notified pt and he will let SW know of next choice. SW to follow for SNF placement. LATISHA Conway
[2019-03-12] MEDS: tiZANidine HCl 2 MG Tablet 4 MG PO ×2 (13:39→21:42)
[2019-03-12] MEDS: cloNIDine HCl 0.1 MG Tablet 0.3 MG PO ×2 (13:39→21:41)
[2019-03-12] MEDS: busPIRone 5 MG Tablet 10 MG PO ×2 (13:39→21:41)
[2019-03-12 16:55] LABS: Bedside Glucose 128 mg/dL (70-110)
[2019-03-12] MEDS: BRINZOLAMIDE/BRIMONID TART 1 DROP DROPS.SUSP 1 DRP EACH EYE (21:43)
[2019-03-12] MEDS: Pantoprazole Sodium 20 MG Tablet PO (21:47)
[2019-03-12] MEDS: Sodium Chloride 0.65% 1 SPRAY SPRAY.BTL NASAL (21:54)
[2019-03-12] MEDS: Mycophenolate Mofetil 250 MG Capsule 500 MG PO (22:05)
[2019-03-13] VITALS (19 sets, daily range): BP systolic 123–208; BP diastolic 53–90; PULSE 63–104; RESP 16–20; TEMP 36.3–37.5; O2SAT 94–100
[2019-03-13 00:31] LABS: Bedside Glucose 113 mg/dL (70-110)
[2019-03-13] MEDS: Dextrose 5%/0.9% NaCl 1,000 ML 100 ML IV (03:05)
[2019-03-13] MEDS: busPIRone 5 MG Tablet 10 MG PO ×2 (05:43→21:16)
[2019-03-13] MEDS: cloNIDine HCl 0.1 MG Tablet 0.3 MG PO ×2 (05:44→21:16)
[2019-03-13] MEDS: 0.9% Saline Lock 10 ML Syringe IV (05:44)
[2019-03-13] MEDS: tiZANidine HCl 2 MG Tablet 4 MG PO ×2 (05:44→21:16)
[2019-03-13 05:53] LABS: Absolute Lymphocyte Count 3.02 X10^3/uL (0.83-4.51); Absolute Neutrophil Count 7.2 X10^3/uL (2.0-7.7); Basophil# 0.01 X10^3/uL; Basophil% 0.1 % (0-1); Eosinophil# 0.06 X10^3/uL; Eosinophils% 0.5 % (0-5); Hematocrit 33.5 % (37-47); Hemoglobin 10.9 g/dL (12.0-15.0); Lymphocyte # 3.02 X10^3/ul (4.0); Lymphocyte % 26.6 % (19-41); Mean Corp Hgb Conc 32.5 g/dL (32-36); Mean Corpuscular Hgb 31.3 pg (27.0-32.0); Mean Corpuscular Volume 96.3 fL (81-99); Mean Platelet Vol. 10.1 fl (6.2-12.0); Monocyte# 1.05 X10^3/uL; Monocyte% 9.2 % (0-10); NRBC Flagged by Analyzer 0 % (0-5); Neutrophil # 7.17 X10^3/uL (2.7-7.7); Neutrophil % 63.2 % (47-70); Platelet Count 268 K/mm3 (150-450); RBC Distribution Width SD 52.4 fl (35.1-43.9); Red Blood Count 3.48 M/mm3 (4.2-5.4); White Blood Count 11.4 K/mm3 (4.4-11.0)
--- NOTE | 2019-03-13 05:55 | RAD_ITS ---
STUDY: X-RAY CHEST REASON FOR EXAM: Female, 73 years old. Dyspnea TECHNIQUE: AP and lateral views of the chest. COMPARISON: Comparison is made with prior study dated March 11, 2019. FINDINGS: EKG electrodes are seen. Stable marked degree of increased interstitial markings with multiple areas of confluence and honeycombing worse in the right hemithorax. This is in keeping with a chronic interstitial fibrosis. There has been essentially no change. Blunting of both costophrenic angles. Normal size heart. Normal mediastinum and saeed. Normal visualized pulmonary arteries. There is atherosclerotic calcification of the aortic arch with tortuosity. There are diffuse degenerative changes of the visualized thoracic spine. Dextroscoliosis. Normal visualized ribs, clavicles, and shoulders. There is no demonstrated abnormality of the visualized soft tissue structures of the upper abdomen. RAD/Chest PA and Lateral IMPRESSION: Stable examination. Electronically Signed: Carl Salas, at 9:46 EST , Service support ,
[2019-03-13 06:05] LABS: Anion Gap 5 (5-15); BUN 15 mg/dL (7-18); BUN/Creat Ratio 20.2 RATIO (10-20); Chloride 111 mmol/L (98-107); Creatinine, Serum 0.74 mg/dL (0.55-1.02); EST Glomerular Filtration Rate 81 mL/min (>60); Est Glom Filt Rate - Afr Amer 98 mL/min (>60); Estimated Creatinine Clearance 36.54 ml/min; Glucose 113 mg/dL (74-106); Potassium 3.5 mmol/L (3.5-5.1); Sodium Level 141 mmol/L (136-145)
[2019-03-13] MEDS: Ipratropium/Albuterol Sulfate 3 ML AMPUL.NEB INHALATION ×3 (06:45→19:10)
[2019-03-13 07:00] LABS: Bedside Glucose 100 mg/dL (70-110)
[2019-03-13] MEDS: Lidocaine 5% Patch 2 PATCH TOPICAL (10:19)
[2019-03-13] MEDS: Latanoprost 0.005% 1 Bottle 1 DRP OPHTHALMIC ×2 (10:22→21:14)
--- NOTE | 2019-03-13 13:10 | NURSING ---
Pt to OR
[2019-03-13] MEDS: Lactated Ringers 1,000 ML 75 ML IV (13:42)
--- NOTE | 2019-03-13 13:58 | PN_ITS ---
<Adam Rudolph - Last Filed: 03/13/19 13:58> Patient Problems: Active and Suspected Problems (Last Reviewed 02/07/17 @ 11:52 by Nawaf Ny) Intractable back pain (Acute) Compression fracture of T7 vertebra (Acute) Reason for Visit: back pain Subjective: Pt A/Ox3 today. She is now eating, swallowing pills. She has no fever/chills. She c/o severe back pain and is planning for an epidural this evening. She has no increased SOB. Vitals/I&O's: Vital Signs Temp Pulse Resp BP Pulse Ox 97.4 F L 73 20 H 134/70 H 97 03/13/19 08:07 03/13/19 10:54 03/13/19 10:51 03/13/19 08:07 03/13/19 08:20 Oxygen Flow Rate (L/min) 2 Oxygen Delivery Method Nasal Cannula Weight: 101 lb 13.657 oz Body Mass Index (BMI) 21.3 Finger Stick Blood Glucose 89 Intake and Output for Last 24 Hours 03/11/19 03/12/19 03/13/19 23:59 23:59 23:59 Intake Total 3045 / 3045 1871.67 / 1871.67 891.67 / 891.67 Output Total 1750 / 1750 975 / 975 150 / 150 Balance 1295 / 1295 896.67 / 896.67 741.67 / 741.67 General: Alert, Oriented x3, Cooperative HEENT: Atraumatic, PERRLA, EOMI, Normocephalic Neck: Supple, No JVD, Negative Carotid Bruits Lungs: Clear to auscultation, Normal air movement Cardiovascular: Regular rate, No murmurs Abdomen: Bowel Sounds Present, Soft, Non Tender Extremities: No edema, Capillary Refill Less than 3 Seconds Skin: No rashes, No breakdown Musculoskeletal: No Tenderness to Palpation of Joints or Extremities Neurological: Cranial nerves II-XII grossly intact Psych/Mental Status: Normal Affect, Appropriate, Alert and oriented to time, place, person, mood and affect Microbiology Past 72 Hours 03/11/19 09:44 Blood Culture (Wb) - Left Forearm Blood Culture - Preliminary No growth in 48 hours. 03/11/19 09:34 Blood Culture (Wb) - Anticubital Right Blood Culture - Preliminary No growth in 48 hours. 03/11/19 11:30 Urine Catheter - Catheter Urine Culture - Final Culture exhibits no growth. Laboratory Results 03/12/19 16:34: POC Glucose 128 H 03/12/19 22:18: POC Glucose 113 H 03/13/19 05:10: WBC 11.4 H, RBC 3.48 L, Hgb 10.9 L, Hct 33.5 L, MCV 96.3, MCH 31.3, MCHC 32.5, RDW Std Deviation 52.4 H, RDW Coeff of Joey 15.0 H, Plt Count 268, MPV 10.1, Immature Gran % (Auto) 0.400, Neut % (Auto) 63.2, Lymph % (Auto) 26.6, [place] % (Auto) 9.2, Eos % (Auto) 0.5, Baso % (Auto) 0.1, Absolute Neuts (auto) 7.2, Absolute Lymphs (auto) 3.02, Nucleated RBC % 0 03/13/19 05:10: Sodium 141, Potassium 3.5, Chloride 111 H, Carbon Dioxide 25.0, Anion Gap 5, BUN 15, Creatinine 0.74, Estim Creat Clear Calc 36.54, Est GFR (MDRD) Af Amer 98, Est GFR (MDRD) Non-Af 81, BUN/Creatinine Ratio 20.2 H, Glucose 113 H, Calcium 8.0 L 03/13/19 06:54: POC Glucose 100 Current Medications Acetaminophen (Tylenol) 650 mg PO Q6H PRN PRN PRN Reason: Pain or Fever Albuterol/Ipratropium (Duoneb) 3 ml INHALATION Q4HWA.RT [facility] Last Admin: 03/13/19 10:51 Dose: 3 ml Documented by: Alendronate Sodium (Fosamax) 70 mg PO QWEEK [facility] Last Admin: 03/11/19 07:42 Dose: Not Given Documented by: Buspirone HCl (Buspar) 10 mg PO TID [facility] Last Admin: 03/13/19 13:32 Dose: Not Given Documented by: Clonidine (Catapres) 0.3 mg PO TID [facility] Last Admin: 03/13/19 13:32 Dose: Not Given Documented by: Hydralazine HCl (Apresoline Iv) 5 mg IV Q6H PRN PRN PRN Reason: BLOOD PRESSURE Last Admin: 03/12/19 12:23 Dose: 5 mg Documented by: Sodium Chloride () 250 mls @ 15 mls/hr IV .[id number] PRN PRN Reason: Saline Flush Sodium Chloride () 250 mls @ 15 mls/hr IV .[id number] PRN PRN Reason: Additional IVPB Infusion Lactated Ringer's () 1,000 mls @ 75 mls/hr IV .[id number] [facility] Last Admin: 03/13/19 13:42 Dose: 75 mls/hr Documented by: Latanoprost (Xalatan Opthalmic) 1 drop OPHTHALMIC BID [facility] Last Admin: 03/13/19 10:22 Dose: 1 drop Documented by: Lidocaine (Lidoderm Patch) 2 patch TOPICAL DAILY [facility]; Protocol Last Admin: 03/13/19 10:19 Dose: 2 patch Documented by: Lorazepam (Ativan) 0.5 mg IV Q6H PRN PRN PRN Reason: ANXIETY Last Admin: 03/12/19 05:59 Dose: 0.5 mg Documented by: Magnesium Hydroxide (Milk Of Magnesia) 30 ml PO DAILY PRN PRN PRN Reason: Constipation Morphine Sulfate () 2 mg IV Q3H PRN PRN PRN Reason: Pain Score 6-10/10 Last Admin: 03/12/19 10:52 Dose: 2 mg Documented by: Multivitamins/Minerals ([facility]) [facility] Last Admin: 03/13/19 09:50 Dose: Not Given Documented by: Mycophenolate Mofetil (Cellcept) 500 mg PO BID [facility] Last Admin: 03/13/19 09:51 Dose: Not Given Documented by: Ondansetron HCl (Zofran) 4 mg IV Q8H PRN PRN PRN Reason: NAUSEA/VOMITING Last Admin: 03/11/19 00:22 Dose: 4 mg Documented by: Oxycodone HCl (Oxyir) 5 mg PO Q4H PRN PRN PRN Reason: Pain Score 4-5/10 Pantoprazole Sodium (Protonix) 20 mg PO DAILY [facility] Last Admin: 03/13/19 09:51 Dose: Not Given Documented by: Prednisone () 30 mg PO DAILY@0800 [facility] Last Admin: 03/13/19 09:50 Dose: Not Given Documented by: Psyllium Hydrophilic Mucilloid (Metamucil) 1 packet PO DAILY PRN PRN PRN Reason: Constipation Sodium Chloride () 10 - 40 ml IV UD PRN PRN Reason: SALINE FLUSH Last Admin: 03/13/19 05:44 Dose: 10 ml Documented by: Sodium Chloride ([place] Nasal [place]) 1 spray NASAL BID PRN PRN PRN Reason: NASAL DRYNESS Last Admin: 03/12/19 21:54 Dose: 1 spray Documented by: Tizanidine HCl (Zanaflex) 4 mg PO Q8 [facility] Last Admin: 03/13/19 13:32 Dose: Not Given Documented by: STROKE Vital Signs/Narrative: Vital Signs Pulse Resp 03/13/19 10:54 73 03/13/19 10:51 85 20 H Medical Necessity - Tobacco Use Smoking Status: Former smoker Tobacco Use: Non-smoker Assessment/Plan All Active Problems (Last Reviewed 02/07/17 @ 11:52 by Nawaf Ny) Intractable back pain (Acute) Compression fracture of T7 vertebra (Acute) Hyponatremia (Acute) Abdominal pain (Acute) 1. Suspected acute severe sepsis - Ruled out. No source of infection identified and negative cultures. Patient improved without antibiotics. pt immunocompromise d on 3 months prednisone and started cellcept last week. + leukocytosis (however is on chronic steroids), lactic acidosis, tachypnea, tachycardia. CXR without acute change. At baseline o2. CT brain pending. T bili mildly elevated. UA negative. Blood cx pending. ID consulted. -This may be related to severe back pain. -Epidural today with Dr. Patel 2. Acute metabolic encephalopathy 2/2 above - resolved. 3. Osteoporosis with compression fractures T spine, Intractable back pain - PTOT. acute on chronic back pain. complicated by chronic prednisone use. She does take alendronate at home. Again, epidural today. PTOT. 4. Chronic hypoxic resp failure 2/2 interstitial lung dz/pulmonary fibrosis - no acute change on cxr, o2 demand, no cough or SOB. Her solar energy specialist, Dr. Engle, was consulted. 5. Hx psoriasis, reynauds, RA, interstitial lung disease related to RA - wound care following for LE wounds. again, on cellcept / chronic steroids. Her rheumatoid panel on chart is inconclusive for specific rheum disorder. Cellcept is held with concern for #1. 6. HTN - improved. DVT ppx: heparin held for epidural. SCDs. DC planning: PTOT, may need placement This patient was seen by Adam Rudolph PA-C under the supervision of Dr. Briceño. <Miguel Briceño - Last Filed: 03/13/19 15:58> Subjective: Patient is awake and alert and oriented x3. Patient talks coherent and understands. Discussed with patient's . Patient complained of severe back pain. Has kyphosis and scoliosis. Plan for epidural analgesia in the evening. Vitals/I&O's: Vital Signs Temp Pulse Resp BP Pulse Ox 98.9 F 87 16 177/80 H 100 03/13/19 15:30 03/13/19 15:30 03/13/19 15:30 03/13/19 15:30 03/13/19 15:30 Oxygen Flow Rate (L/min) 3 Oxygen Delivery Method Nasal Cannula Weight: 101 lb 13.657 oz Body Mass Index (BMI) 21.3 Finger Stick Blood Glucose 89 Intake and Output for Last 24 Hours 03/11/19 03/12/19 03/13/19 23:59 23:59 23:59 Intake Total 3045 / 3045 1871.67 / 1871.67 891.67 / 891.67 Output Total 1750 / 1750 975 / 975 450 / 450 Balance 1295 / 1295 896.67 / 896.67 441.67 / 441.67 General: Alert, Oriented x3, Cooperative HEENT: Atraumatic, PERRLA, EOMI, Normocephalic Neck: Supple, No JVD, Negative Carotid Bruits Lungs: Diminished, Rhonchi - Expiratory rhonchi present Cardiovascular: Regular rate, Regular Rhythm, Normal S1, Normal S2, No murmurs Abdomen: Bowel Sounds Present, Soft, Non Tender, Non-Distended Extremities: No edema, Capillary Refill Less than 3 Seconds Skin: No rashes, No breakdown Musculoskeletal: Arthritic Changes, Tenderness - Tenderness in upper thoracic spine Neurological: Cranial nerves II-XII grossly intact, Neuro grossly intact Psych/Mental Status: Normal Affect, Appropriate Microbiology Past 72 Hours 03/11/19 09:44 Blood Culture (Wb) - Left Forearm Blood Culture - Preliminary No growth in 48 hours. 03/11/19 09:34 Blood Culture (Wb) - Anticubital Right Blood Culture - Preliminary No growth in 48 hours. 03/11/19 11:30 Urine Catheter - Catheter Urine Culture - Final Culture exhibits no growth. Laboratory Results 03/12/19 16:34: POC Glucose 128 H 03/12/19 22:18: POC Glucose 113 H 03/13/19 05:10: WBC 11.4 H, RBC 3.48 L, Hgb 10.9 L, Hct 33.5 L, MCV 96.3, MCH 31.3, MCHC 32.5, RDW Std Deviation 52.4 H, RDW Coeff of Joey 15.0 H, Plt Count 268, MPV 10.1, Immature Gran % (Auto) 0.400, Neut % (Auto) 63.2, Lymph % (Auto) 26.6, [place] % (Auto) 9.2, Eos % (Auto) 0.5, Baso % (Auto) 0.1, Absolute Neuts (auto) 7.2, Absolute Lymphs (auto) 3.02, Nucleated RBC % 0 03/13/19 05:10: Sodium 141, Potassium 3.5, Chloride 111 H, Carbon Dioxide 25.0, Anion Gap 5, BUN 15, Creatinine 0.74, Estim Creat Clear Calc 36.54, Est GFR (MDRD) Af Amer 98, Est GFR (MDRD) Non-Af 81, BUN/Creatinine Ratio 20.2 H, Glucose 113 H, Calcium 8.0 L 03/13/19 06:54: POC Glucose 100 Current Medications Acetaminophen (Tylenol) 650 mg PO Q6H PRN PRN PRN Reason: Pain or Fever Albuterol/Ipratropium (Duoneb) 3 ml INHALATION Q4HWA.RT [facility] Last Admin: 03/13/19 10:51 Dose: 3 ml Documented by: Alendronate Sodium (Fosamax) 70 mg PO QWEEK [facility] Last Admin: 03/11/19 07:42 Dose: Not Given Documented by: Buspirone HCl (Buspar) 10 mg PO TID [facility] Last Admin: 03/13/19 13:32 Dose: Not Given Documented by: Clonidine (Catapres) 0.3 mg PO TID [facility] Last Admin: 03/13/19 13:32 Dose: Not Given Documented by: Hydralazine HCl (Apresoline Iv) 5 mg IV Q6H PRN PRN PRN Reason: BLOOD PRESSURE Last Admin: 03/12/19 12:23 Dose: 5 mg Documented by: Sodium Chloride () 250 mls @ 15 mls/hr IV .[id number] PRN PRN Reason: Saline Flush Sodium Chloride () 250 mls @ 15 mls/hr IV .[id number] PRN PRN Reason: Additional IVPB Infusion Lactated Ringer's () 1,000 mls @ 75 mls/hr IV .[id number] [facility] Last Admin: 03/13/19 13:42 Dose: 75 mls/hr Documented by: Latanoprost (Xalatan Opthalmic) 1 drop OPHTHALMIC BID [facility] Last Admin: 03/13/19 10:22 Dose: 1 drop Documented by: Lidocaine (Lidoderm Patch) 2 patch TOPICAL DAILY [facility]; Protocol Last Admin: 03/13/19 10:19 Dose: 2 patch Documented by: Magnesium Hydroxide (Milk Of Magnesia) 30 ml PO DAILY PRN PRN PRN Reason: Constipation Morphine Sulfate () 2 mg IV Q3H PRN PRN PRN Reason: Pain Score 6-10/10 Last Admin: 03/12/19 10:52 Dose: 2 mg Documented by: Multivitamins/Minerals (Multivitamin With Minerals) 1 tablet PO DAILYCM [facility] Last Admin: 03/13/19 09:50 Dose: Not Given Documented by: Mycophenolate Mofetil (Cellcept) 500 mg PO BID [facility] Last Admin: 03/13/19 09:51 Dose: Not Given Documented by: Ondansetron HCl (Zofran) 4 mg IV Q8H PRN PRN PRN Reason: NAUSEA/VOMITING Last Admin: 03/11/19 00:22 Dose: 4 mg Documented by: Oxycodone HCl (Oxyir) 5 mg PO Q4H PRN PRN PRN Reason: Pain Score 4-5/10 Pantoprazole Sodium (Protonix) 20 mg PO DAILY [facility] Last Admin: 03/13/19 09:51 Dose: Not Given Documented by: Prednisone () 30 mg PO DAILY@0800 [facility] Last Admin: 03/13/19 09:50 Dose: Not Given Documented by: Psyllium Hydrophilic Mucilloid (Metamucil) 1 packet PO DAILY PRN PRN PRN Reason: Constipation Sodium Chloride () 10 - 40 ml IV UD PRN PRN Reason: SALINE FLUSH Last Admin: 03/13/19 05:44 Dose: 10 ml Documented by: Sodium Chloride ([place] Nasal [place]) 1 spray NASAL BID PRN PRN PRN Reason: NASAL DRYNESS Last Admin: 03/12/19 21:54 Dose: 1 spray Documented by: Tizanidine HCl (Zanaflex) 4 mg PO Q8 [facility] Last Admin: 03/13/19 13:32 Dose: Not Given Documented by: STROKE Vital Signs/Narrative: Vital Signs Temp Pulse Resp BP Pulse Ox 03/13/19 15:30 98.9 F 87 16 177/80 H 100 03/13/19 15:25 91 16 180/81 H 100 03/13/19 15:20 82 16 177/75 H 99 03/13/19 15:15 85 16 164/69 H 99 03/13/19 15:10 99.5 F H 88 16 169/72 H 99 Assessment/Plan This patient was seen in conjunction with Adam GLYNN. I have independently interviewed and examined the patient and reviewed pertinent history, examination findings, laboratory and plan of management. I have reviewed the note and agree with the documented findings with the few additional points. In brief, patient was initially admitted with acute on chronic back pain but today found to be tachypneic, tachycardic, lactic acidosis leukocytosis. Patient herself is confused and disoriented and cannot give history. No fever charted. Sepsis work-up ordered. ID was consulted. Not on antibiotic. Patient has history of compression fracture of thoracic spine with osteoporosis probably secondary to chronic steroid use. 03/12/2019: Urine culture is negative. Blood cultures x2. Patient has leukocytosis and possible lactic acidosis secondary to pain, fracture and chronic steroid therapy. Severe sepsis/sepsis ruled out on 03/11/2019. No fever or chills. Discussed with the solar energy specialist Dr. Engle. He has seen the patient in the evening on 03/11 2019 but no official consult note. He suggested tapering of the prednisone dose 30 mg daily. Does not think patient is confused or encephalopathic secondary to CellCept. Patient was on CellCept for pulmonary fibrosis Pain management as per surgery consulted for epidural analgesia thoracic tibial fracture for pain relief. And there is no official note of pain management but it seems that Dr. Patel has seen the patient. Other rheumatology disease include history of psoriasis and Raynaud's osteoporosis. Patient previous autoimmune markers including CCP were negative. APPLICATION SERVICES MANAGER 1.1. 03/13/2019: Patient is scheduled for epidural analgesia by Dr. Patel. K3.5. Currently, patient is n.p.o. K. Dur 40 M EQ 1 dose after the procedure and patient is awake. I have discussed my assessment with Adam GLYNN and orders have been reviewed. Code Visit Inpatient E&M: 57094 Subs Hosp L2
--- NOTE | 2019-03-13 14:35 | RAD_ITS ---
PROCEDURE: T8-T9 epidural block. DATE OF EXAMINATION: March 13, 2019. INDICATION: Female, 73 years old. Back pain. FLUOROSCOPY TIME (if supplied): (5.1 seconds) minutes/seconds Intraoperative fluoroscopic services provided for T8-T9 epidural block. RAD/Spine 1 View Any Level IMPRESSION: Intraoperative fluoroscopic services provided for T8-T9 epidural block. Electronically Signed: Carl Salas, at 10:20 EST , Service support ,
[2019-03-13] MEDS: Triamcinolone Acetonide 40 MG/ML Vial (14:59)
[2019-03-13] MEDS: BRINZOLAMIDE/BRIMONID TART 1 DROP DROPS.SUSP 1 DRP EACH EYE (21:14)
[2019-03-13] MEDS: Mycophenolate Mofetil 250 MG Capsule 500 MG PO (21:15)
[2019-03-13 23:05] LABS: Bedside Glucose 153 mg/dL (70-110)
[2019-03-14] VITALS (11 sets, daily range): BP systolic 139–185; BP diastolic 69–90; PULSE 64–99; RESP 16–20; TEMP 36.6–36.8; O2SAT 95–99
[2019-03-14] MEDS: hydrALAZINE 20 MG/ML Vial 5 MG IV (03:23)
[2019-03-14] MEDS: 0.9% Saline Lock 10 ML Syringe IV (03:23)
[2019-03-14] MEDS: busPIRone 5 MG Tablet 10 MG PO ×2 (05:37→13:06)
[2019-03-14] MEDS: tiZANidine HCl 2 MG Tablet 4 MG PO ×2 (05:37→13:07)
[2019-03-14] MEDS: cloNIDine HCl 0.1 MG Tablet 0.3 MG PO ×2 (05:38→13:06)
[2019-03-14 06:32] LABS: Basophil# 0.01 X10^3/uL; Basophil% 0.1 % (0-1); Hemoglobin 12.9 g/dL (12.0-15.0); Lymphocyte % 9.5 % (19-41); Mean Corp Hgb Conc 32.3 g/dL (32-36); Mean Corpuscular Hgb 30.6 pg (27.0-32.0); Mean Corpuscular Volume 94.8 fL (81-99); Mean Platelet Vol. 10.8 fl (6.2-12.0); Monocyte# 0.52 X10^3/uL; Monocyte% 4.9 % (0-10); NRBC Flagged by Analyzer 0 % (0-5); Neutrophil # 8.96 X10^3/uL (2.7-7.7); Neutrophil % 84.8 % (47-70); Platelet Count 361 K/mm3 (150-450); RBC Distribution Width CV 14.6 % (11.6-14.6); RBC Distribution Width SD 50.6 fl (35.1-43.9); Red Blood Count 4.22 M/mm3 (4.2-5.4); White Blood Count 10.6 K/mm3 (4.4-11.0)
[2019-03-14 06:40] LABS: Bedside Glucose 128 mg/dL (70-110)
[2019-03-14] MEDS: Ipratropium/Albuterol Sulfate 3 ML AMPUL.NEB INHALATION ×3 (06:46→14:20)
[2019-03-14] MEDS: Multivitamins,Ther W-Minerals Tablet 1 TABLET PO (08:45)
[2019-03-14] MEDS: predniSONE 10 MG Tablet 30 MG PO (08:45)
[2019-03-14] MEDS: Mycophenolate Mofetil 250 MG Capsule 500 MG PO (08:46)
[2019-03-14] MEDS: Lidocaine 5% Patch 2 PATCH TOPICAL (08:46)
[2019-03-14] MEDS: Latanoprost 0.005% 1 Bottle 1 DRP OPHTHALMIC (08:46)
[2019-03-14] MEDS: Pantoprazole Sodium 20 MG Tablet PO (08:46)
--- NOTE | 2019-03-14 10:00 | CASEMGMT ---
SW spoke with patient about going somewhere for rehab. She said she is not sure yet. She said she will have therapy today. She said she does feel a lot better. DEGREE CLERK Jovana then came into the room. TOYA told patient SW will check back with her after PT sees her. SW did leave a list of in network facilities and let her know [facility] is full so it is not an option at this time. Annabel BAUMAN MSW
--- NOTE | 2019-03-14 13:36 | CASEMGMT ---
SW spoke with patient and her . Discussed that therapy said she would benefit from going somewhere for rehab, but she could also go home as long as someone would be with her all the time. Patient's said he would be with her. Discussed home health and gave them a list of home health agencies that are in network with their insurance. They chose [facility]. SW called [facility] and made a referral. Plan: Home with [facility] PT and OT. Annabel BAUMAN MSW
--- NOTE | 2019-03-14 14:18 | DCINST_ITS ---
- Discharge Diagnoses Current Active Problems: Current Active and Chronic Problems (Last Reviewed 02/07/17 @ 11:52 by Nawaf Ny) Intractable back pain (Acute) Compression fracture of T7 vertebra (Acute) You will use the following diet at home:: No restrictions Discharge Activity: Return to Normal Activity Call your doctor if you observe: Shortness of breath, Dizziness, Fainting spells, Chest pain Additional Instructions: Reduce prednisone to 20 mg daily for 3 days then 10 mg daily for 3 days then discontinue. Allergies/Adverse Reactions: Allergies cortisone Allergy (Verified 02/07/17 11:52) Swelling gluten Allergy (Verified 03/11/19 14:33) Abd cramps/diarrhea latex Allergy (Verified 02/07/17 11:52) Other WAS TOLD TO AVOID sulfamethoxazole [From Bactrim] Allergy (Verified 02/07/17 11:52) Other PROBLEMS SWALLOWING trimethoprim [From Bactrim] Allergy (Verified 02/07/17 11:52) Other PROBLEMS SWALLOWING sulfadimethoxine Adverse Reaction (Verified 02/07/17 11:52) Other I HAD TROUBLE WITHY MY THROAT Medications to take at Discharge Clonidine HCl [Catapres] 0.3 mg PO TID 11/04/14 Multivit-Min/FA/Lycopen/Lutein [Centrum Silver Tablet] 1 ea PO DAILY 03/15/16 Potassium Chloride [Klor-Con] 20 meq PO DAILY 03/15/16 Alendronate Sodium [Fosamax] 70 mg PO QWEEK 08/10/16 Acetaminophen with Codeine [Acetaminophen-Cod #3 Tablet] 1 - 2 tab PO Q6H PRN 03/10/19 Brinzolamide/Brimonid Tart [Simbrinza 1%-0.2% Eye Drops] 1 drp OP QHS 03/10/19 Buspirone HCl 10 mg PO TID 03/10/19 Latanoprost 0.005% [Xalatan Opthalmic] 1 drp EACHEYE BID 03/10/19 Mycophenolate Mofetil [Cellcept] 500 mg PO BID 03/10/19 Netarsudil Mesylate [Rhopressa] 2.5 ml EACHEYE QHS 03/10/19 Omeprazole [Prilosec] 20 mg PO DAILY 03/10/19 Tizanidine HCl 4 mg PO Q8H 03/10/19 Prednisone [Deltasone] 30 mg PO DAILY #0 03/14/19 Primary Care Physician: Luís Dorsey MD [Primary Care Provider] - Please follow up with your Primary Care Physician in: 1 Week Test Results: Test results from this visit will be discussed in further detail at your follow- up appointment, if applicable. Please Follow Up With: Leonardo Engle MD When: 1 week Please Follow Up With: Mary Patel MD When: 1 Week Proposed Discharge Date: 03/14/19
--- NOTE | 2019-03-14 14:20 | PCM.DC.SUM ---
<Rosalinda Villanueva - Last Filed: 03/14/19 14:33> Discharge Date and Diagnosis Date of Admission: 03/10/19 Date of Discharge: 03/14/19 - Primary Discharge Diagnosis Active and Suspected Problems (Last Reviewed 02/07/17 @ 11:52 by Nawaf Ny) 1. Intractable back pain secondary to osteoporosis with compression fracture of T7 and T8 with severe compression fracture of T11 2. Acute severe sepsis-ruled out 3. Chronic hypoxia respiratory failure secondary to interstitial lung disease with pulmonary fibrosis 4. History of psoriasis, reynauds and rheumatoid arthritis 5. Hypertension - Secondary Discharge Diagnosis Chronic Problems (Last Reviewed 02/07/17 @ 11:52 by Nawaf Ny) Edema of both legs (Chronic) Eczema (Chronic) Erythromelalgia (Chronic) Swelling of lower extremity (Chronic) Raynaud's phenomenon (Chronic) Psoriasis (Chronic) Pain in both lower legs (Chronic) Lumbar disc disease (Chronic) Hypertension (Chronic) Hospital Course and Treatment Imaging Results: Diagnostic Data Thoracic Spine CT 03/10/19 19:40 IMPRESSION: Extremely limited exam, nearly uninterpretable. Compression fractures of T7, and T8 are of indeterminate age. Severe compression fracture of T11 was present on previous studies listed above but has progressed since 2017. Electronically Signed: Braulio Barlow MD at 21:47 EST , Service support , Thoracic Spine X-Ray 03/10/19 21:10 IMPRESSION: Limited evaluation due to patient body habitus and radiographic technique. Severe multilevel spondylosis and multiple wedge compression deformities are worsened since the prior examination and are better assessed by CT. Electronically Signed: Adin Avina, at 22:46 EST Tel , Service support , Brain CT 03/11/19 08:46 IMPRESSION: Chronic involutional changes of the brain. Electronically Signed: Carl Salas, at 13:25 EST , Service support , Chest X-Ray 03/13/19 05:55 IMPRESSION: Stable examination. Electronically Signed: Carl Salas, at 9:46 EST , Service support , Spine X-Ray 03/13/19 14:35 IMPRESSION: Intraoperative fluoroscopic services provided for T8-T9 epidural block. Electronically Signed: Carl Salas, at 10:20 EST , Service support , Consultations 03/11/19 04:14 Consult: Onc/Wound/electrical electronics technician Routine Comment: Reason for Consult:: BLE WOUNDS Dr. Patel- pain management Dr. Hill- ID Dr. Engle- pulmonary Operations: None Procedures: - - T8-T9 epidural block Summary of Care Provided: The patient is a 73 year old F admitted 03/10/2019 due to back pain. 1. Intractable back pain secondary to osteoporosis with compression fracture of T7 and T8 with severe compression fracture of J12-decc management consulted. Underwent T8-T9 epidural block with significant improvement in back pain. Follow-up with primary care physician and pain management in 1 week. Continue Fosamax. Discharge home with home health. 2. Acute severe sepsis-ruled out. Leukocytosis and lactic acidosis explained by pain, fractures and chronic steroids as well as being immunosuppressed. All cultures and infectious work-up unremarkable. ID consulted during admission. 3. Chronic hypoxia respiratory failure secondary to interstitial lung disease with pulmonary fibrosis-stable. Follows with Dr. Engle. Follow-up with pulmonary medicine in 1 week. Continue CellCept and prednisone 30 mg daily and follow-up with pulmonary medicine for further recommendations. 4. History of psoriasis, reynauds and rheumatoid arthritis-with interstitial lung disease related to RA. On CellCept and chronic steroids. Continue outpatient follow-up. 5. Hypertension-stable, continue clonidine regimen. General: Alert, Oriented x3, Cooperative HEENT: Atraumatic, PERRLA, EOMI, Normocephalic Neck: Supple, No JVD, Negative Carotid Bruits Lungs: Clear to auscultation, Normal air movement Cardiovascular: Regular rate, No murmurs Abdomen: Bowel Sounds Present, Soft, Non Tender Extremities: No edema, Capillary Refill Less than 3 Seconds Skin: No rashes, No breakdown Musculoskeletal: No Tenderness to Palpation of Joints or Extremities Neurological: Cranial nerves II-XII grossly intact Psych/Mental Status: Normal Affect, Appropriate Patient seen and examined prior to discharge. Physical assessment as noted above. Patient is stable for discharge with follow up recommendations as noted above. This patient was seen by TERESITA Johnson under the supervision of Dr. Briceño. - Physical Exam Vitals/I&O's: Vital Signs Temp Pulse Resp BP Pulse Ox 97.8 F 89 20 H 139/80 H 97 03/14/19 08:44 03/14/19 11:21 03/14/19 11:21 03/14/19 08:44 03/14/19 11:21 Oxygen Flow Rate (L/min) 2 Oxygen Delivery Method Nasal Cannula Weight: 100 lb 12.02 oz Body Mass Index (BMI) 21.3 Finger Stick Blood Glucose 89 Intake and Output for Last 24 Hours 03/12/19 03/13/19 03/14/19 23:59 23:59 23:59 Intake Total 1871.67 / 1871.67 1289.17 / 1289.17 500 / 500 Output Total 975 / 975 650 / 650 Balance 896.67 / 896.67 639.17 / 639.17 500 / 500 Microbiology Past 72 Hours 03/11/19 09:44 Blood Culture (Wb) - Left Forearm Blood Culture - Preliminary No growth in 48 hours. 03/11/19 09:34 Blood Culture (Wb) - Anticubital Right Blood Culture - Preliminary No growth in 48 hours. 03/11/19 11:30 Urine Catheter - Catheter Urine Culture - Final Culture exhibits no growth. Laboratory Results 03/13/19 22:59: POC Glucose 153 H 03/14/19 05:14: WBC 10.6, RBC 4.22, Hgb 12.9, Hct 40.0, MCV 94.8, MCH 30.6, MCHC 32.3, RDW Std Deviation 50.6 H, RDW Coeff of Joey 14.6, Plt Count 361, MPV 10.8, Immature Gran % (Auto) 0.700, Neut % (Auto) 84.8 H, Lymph % (Auto) 9.5 L, [place] % (Auto) 4.9, Eos % (Auto) 0.0, Baso % (Auto) 0.1, Absolute Neuts (auto) 9.0 H, Absolute Lymphs (auto) 1.00, Nucleated RBC % 0 03/14/19 06:38: POC Glucose 128 H Current Medications Acetaminophen (Tylenol) 650 mg PO Q6H PRN PRN PRN Reason: Pain or Fever Albuterol/Ipratropium (Duoneb) 3 ml INHALATION Q4HWA.RT [facility] Last Admin: 03/14/19 11:18 Dose: 3 ml Documented by: Alendronate Sodium (Fosamax) 70 mg PO QWEEK [facility] Last Admin: 03/11/19 07:42 Dose: Not Given Documented by: Buspirone HCl (Buspar) 10 mg PO TID [facility] Last Admin: 03/14/19 13:06 Dose: 10 mg Documented by: Clonidine (Catapres) 0.3 mg PO TID [facility] Last Admin: 03/14/19 13:06 Dose: 0.3 mg Documented by: Hydralazine HCl (Apresoline Iv) 5 mg IV Q6H PRN PRN PRN Reason: BLOOD PRESSURE Last Admin: 03/14/19 03:23 Dose: 5 mg Documented by: Sodium Chloride () 250 mls @ 15 mls/hr IV .[id number] PRN PRN Reason: Saline Flush Sodium Chloride () 250 mls @ 15 mls/hr IV .[id number] PRN PRN Reason: Additional IVPB Infusion Latanoprost (Xalatan Opthalmic) 1 drop OPHTHALMIC BID [facility] Last Admin: 03/14/19 08:46 Dose: 1 drop Documented by: Lidocaine (Lidoderm Patch) 2 patch TOPICAL DAILY [facility]; Protocol Last Admin: 03/14/19 08:46 Dose: 2 patch Documented by: Magnesium Hydroxide (Milk Of Magnesia) 30 ml PO DAILY PRN PRN PRN Reason: Constipation Morphine Sulfate () 2 mg IV Q3H PRN PRN PRN Reason: Pain Score 6-10/10 Last Admin: 03/12/19 10:52 Dose: 2 mg Documented by: Multivitamins/Minerals (Multivitamin With Minerals) [address] [facility] Last Admin: 03/14/19 08:45 Dose: 1 tablet Documented by: Mycophenolate Mofetil (Cellcept) 500 mg PO BID [facility] Last Admin: 03/14/19 08:46 Dose: 500 mg Documented by: Ondansetron HCl (Zofran) 4 mg IV Q8H PRN PRN PRN Reason: NAUSEA/VOMITING Last Admin: 03/11/19 00:22 Dose: 4 mg Documented by: Oxycodone HCl (Oxyir) 5 mg PO Q4H PRN PRN PRN Reason: Pain Score 4-5/10 Pantoprazole Sodium (Protonix) 20 mg PO DAILY [facility] Last Admin: 03/14/19 08:46 Dose: 20 mg Documented by: Prednisone () 30 mg PO DAILY@0800 [facility] Last Admin: 03/14/19 08:45 Dose: 30 mg Documented by: Psyllium Hydrophilic Mucilloid (Metamucil) 1 packet PO DAILY PRN PRN PRN Reason: Constipation Sodium Chloride () 10 - 40 ml IV UD PRN PRN Reason: SALINE FLUSH Last Admin: 03/14/19 03:23 Dose: 10 ml Documented by: Sodium Chloride ([place]razos Nasal [place]) 1 spray NASAL BID PRN PRN PRN Reason: NASAL DRYNESS Last Admin: 03/12/19 21:54 Dose: 1 spray Documented by: Tizanidine HCl (Zanaflex) 4 mg PO Q8 [facility] Last Admin: 03/14/19 13:07 Dose: 4 mg Documented by: Discharge Diet: No Restrictions Discharge Activity: Return to Normal Activity Call your doctor if you observe: Shortness of breath, Dizziness, Fainting spells, Chest pain Home Medications: Medications to take at Discharge Clonidine HCl [Catapres] 0.3 mg PO TID 11/04/14 Multivit-Min/FA/Lycopen/Lutein [Centrum Silver Tablet] 1 ea PO DAILY 03/15/16 Potassium Chloride [Klor-Con] 20 meq PO DAILY 03/15/16 Alendronate Sodium [Fosamax] 70 mg PO QWEEK 08/10/16 Acetaminophen with Codeine [Acetaminophen-Cod #3 Tablet] 1 - 2 tab PO Q6H PRN 03/10/19 Brinzolamide/Brimonid Tart [Simbrinza 1%-0.2% Eye Drops] 1 drp OP QHS 03/10/19 Buspirone HCl 10 mg PO TID 03/10/19 Latanoprost 0.005% [Xalatan Opthalmic] 1 drp EACHEYE BID 03/10/19 Mycophenolate Mofetil [Cellcept] 500 mg PO BID 03/10/19 Netarsudil Mesylate [Rhopressa] 2.5 ml EACHEYE QHS 03/10/19 Omeprazole [Prilosec] 20 mg PO DAILY 03/10/19 Tizanidine HCl 4 mg PO Q8H 03/10/19 Prednisone [Deltasone] 30 mg PO DAILY #0 03/14/19 Primary Care Physician: Luís Dorsey MD [Primary Care Provider] - Please follow up with your Primary Care Physician in: 1 Week Please Follow Up With: Leonardo Engle MD When: 1 week Please Follow Up With: Mary Patel MD When: 1 Week Disposition: Home with Home Health Minutes spent on discharge:: 35 Patient Condition:: Stable Medical Necessity - Tobacco Use Smoking Status: Former smoker Tobacco Use: Non-smoker Meaningful Use Info Meaningful Use Diagnoses (Choose all that apply): None applicable <Miguel Briceño - Last Filed: 03/14/19 15:38> Discharge Date and Diagnosis - Secondary Discharge Diagnosis Chronic Problems (Last Reviewed 02/07/17 @ 11:52 by Nawaf Ny) Edema of both legs (Chronic) Eczema (Chronic) Erythromelalgia (Chronic) Swelling of lower extremity (Chronic) Raynaud's phenomenon (Chronic) Psoriasis (Chronic) Pain in both lower legs (Chronic) Lumbar disc disease (Chronic) Hypertension (Chronic) Hospital Course and Treatment Consultations 03/11/19 04:14 Consult: Onc/Wound/electrical electronics technician Routine Comment: Reason for Consult:: BLE WOUNDS Summary of Care Provided: This patient was seen in conjunction with GAS APPLIANCE SERVICER HELPER, Rosalinda. I have independently interviewed and examined the patient and reviewed pertinent history, examination findings, laboratory and plan of management. I have reviewed the note and agree with the documented findings with the few additional points. In brief, patient was initially admitted with acute on chronic back pain but today found to be tachypneic, tachycardic, lactic acidosis leukocytosis. Patient herself is confused and disoriented and cannot give history. No fever charted. Sepsis work-up ordered. ID was consulted. Not on antibiotic. Patient has history of compression fracture of thoracic spine with osteoporosis probably secondary to chronic steroid use. 03/12/2019: Urine culture is negative. Blood cultures x2. Patient has leukocytosis and possible lactic acidosis secondary to pain, fracture and chronic steroid therapy. Severe sepsis/sepsis ruled out on 03/11/2019. No fever or chills. Discussed with the outcomes specialist Dr. Engle. He has seen the patient in the evening on 03/11 2019 but no official consult note. He suggested tapering of the prednisone dose 30 mg daily. Does not think patient is confused or encephalopathic secondary to CellCept. Patient was on CellCept for pulmonary fibrosis Pain management as per surgery consulted for epidural analgesia thoracic tibial fracture for pain relief. And there is no official note of pain management but it seems that Dr. Patel has seen the patient. Other rheumatology disease include history of psoriasis and Raynaud's osteoporosis. Patient previous autoimmune markers including CCP were negative. BILLING CONTROL CLERK 1.1. 03/13/2019: Patient is scheduled for epidural analgesia by Dr. Patel. K3.5. Currently, patient is n.p.o. K. Dur 40 M EQ 1 dose after the procedure and patient is awake. 03/14/2019: Patient had epidural anesthesia. Thoracic spine pain resolved. Patient sitting on the chair. Patient is on Fosamax for osteoporosis. Advised follow-up with observation assistant Dr. Mckeon for osteoporosis and consideration of possible IV bisphosphonate as an outpatient. Discussed with patient son. Discharge medication reconciliation done. Discharge follow-up instructions completed. Discharge process discussed with the patient and all questions were answered to patient's satisfaction. Patient was advised tapering off prednisone. Total time spent, exact 35 minutes on discharge meds reconciliation, examination, discussion with consultants, coordination of care with nurses and ancillary staff, review of imaging and blood test and discussion with the patient and patient's son on follow-up instructions. I have discussed my assessment with GAS APPLIANCE SERVICER HELPERRosalinda and orders have been reviewed. [] Objective: General: Alert, Oriented x3, Cooperative HEENT: Atraumatic, PERRLA, EOMI, Normocephalic Neck: Supple, No JVD, Negative Carotid Bruits Lungs: Expiratory rhonchi present. Air entry diffusely diminished. Cardiovascular: Regular rate, Regular Rhythm, Normal S1, Normal S2, No murmurs Abdomen: Bowel Sounds Present, Soft, Non Tender, Non-Distended Extremities: No edema, Capillary Refill Less than 3 Seconds Skin: No rashes, No breakdown Musculoskeletal: Arthritic Changes, Tenderness in upper thoracic spine; kyphoscoliosis of thoracic spine Neurological: Cranial nerves II-XII grossly intact, Neuro grossly intact Psych/Mental Status: Normal Affect, Appropriate - Physical Exam Vitals/I&O's: Vital Signs Temp Pulse Resp BP Pulse Ox 98.0 F 92 18 158/90 H 95 03/14/19 15:14 03/14/19 15:14 03/14/19 15:14 03/14/19 15:14 03/14/19 15:14 Oxygen Flow Rate (L/min) 2 Oxygen Delivery Method Nasal Cannula Weight: 100 lb 12.02 oz Body Mass Index (BMI) 21.3 Finger Stick Blood Glucose 89 Intake and Output for Last 24 Hours 03/12/19 03/13/19 03/14/19 23:59 23:59 23:59 Intake Total 1871.67 / 1871.67 1289.17 / 1289.17 500 / 500 Output Total 975 / 975 650 / 650 Balance 896.67 / 896.67 639.17 / 639.17 500 / 500 Microbiology Past 72 Hours 03/11/19 09:44 Blood Culture (Wb) - Left Forearm Blood Culture - Preliminary No growth in 48 hours. 03/11/19 09:34 Blood Culture (Wb) - Anticubital Right Blood Culture - Preliminary No growth in 48 hours. 03/11/19 11:30 Urine Catheter - Catheter Urine Culture - Final Culture exhibits no growth. Laboratory Results 03/13/19 22:59: POC Glucose 153 H 03/14/19 05:14: WBC 10.6, RBC 4.22, Hgb 12.9, Hct 40.0, MCV 94.8, MCH 30.6, MCHC 32.3, RDW Std Deviation 50.6 H, RDW Coeff of Joey 14.6, Plt Count 361, MPV 10.8, Immature Gran % (Auto) 0.700, Neut % (Auto) 84.8 H, Lymph % (Auto) 9.5 L, [place] % (Auto) 4.9, Eos % (Auto) 0.0, Baso % (Auto) 0.1, Absolute Neuts (auto) 9.0 H, Absolute Lymphs (auto) 1.00, Nucleated RBC % 0 03/14/19 06:38: POC Glucose 128 H Current Medications Acetaminophen (Tylenol) 650 mg PO Q6H PRN PRN PRN Reason: Pain or Fever Albuterol/Ipratropium (Duoneb) 3 ml INHALATION Q4HWA.RT [facility] Last Admin: 03/14/19 14:20 Dose: 3 ml Documented by: Alendronate Sodium (Fosamax) 70 mg PO QWEEK [facility] Last Admin: 03/11/19 07:42 Dose: Not Given Documented by: Buspirone HCl (Buspar) 10 mg PO TID [facility] Last Admin: 03/14/19 13:06 Dose: 10 mg Documented by: Clonidine (Catapres) 0.3 mg PO TID [facility] Last Admin: 03/14/19 13:06 Dose: 0.3 mg Documented by: Hydralazine HCl (Apresoline Iv) 5 mg IV Q6H PRN PRN PRN Reason: BLOOD PRESSURE Last Admin: 03/14/19 03:23 Dose: 5 mg Documented by: Sodium Chloride () 250 mls @ 15 mls/hr IV .[id number] PRN PRN Reason: Saline Flush Sodium Chloride () 250 mls @ 15 mls/hr IV .[id number] PRN PRN Reason: Additional IVPB Infusion Latanoprost (Xalatan Opthalmic) 1 drop OPHTHALMIC BID [facility] Last Admin: 03/14/19 08:46 Dose: 1 drop Documented by: Lidocaine (Lidoderm Patch) 2 patch TOPICAL DAILY [facility]; Protocol Last Admin: 03/14/19 08:46 Dose: 2 patch Documented by: Magnesium Hydroxide (Milk Of Magnesia) 30 ml PO DAILY PRN PRN PRN Reason: Constipation Morphine Sulfate () 2 mg IV Q3H PRN PRN PRN Reason: Pain Score 6-10/10 Last Admin: 03/12/19 10:52 Dose: 2 mg Documented by: Multivitamins/Minerals (Multivitamin With Minerals) [address] [facility] Last Admin: 03/14/19 08:45 Dose: 1 tablet Documented by: Mycophenolate Mofetil (Cellcept) 500 mg PO BID [facility] Last Admin: 03/14/19 08:46 Dose: 500 mg Documented by: Ondansetron HCl (Zofran) 4 mg IV Q8H PRN PRN PRN Reason: NAUSEA/VOMITING Last Admin: 03/11/19 00:22 Dose: 4 mg Documented by: Oxycodone HCl (Oxyir) 5 mg PO Q4H PRN PRN PRN Reason: Pain Score 4-5/10 Pantoprazole Sodium (Protonix) 20 mg PO DAILY [facility] Last Admin: 03/14/19 08:46 Dose: 20 mg Documented by: Prednisone () 30 mg PO DAILY@0800 [facility] Last Admin: 03/14/19 08:45 Dose: 30 mg Documented by: Psyllium Hydrophilic Mucilloid (Metamucil) 1 packet PO DAILY PRN PRN PRN Reason: Constipation Sodium Chloride () 10 - 40 ml IV UD PRN PRN Reason: SALINE FLUSH Last Admin: 03/14/19 03:23 Dose: 10 ml Documented by: Sodium Chloride (Brazos Nasal [place]) 1 spray NASAL BID PRN PRN PRN Reason: NASAL DRYNESS Last Admin: 03/12/19 21:54 Dose: 1 spray Documented by: Tizanidine HCl (Zanaflex) 4 mg PO Q8 [facility] Last Admin: 03/14/19 13:07 Dose: 4 mg Documented by: Code Visit Inpatient E&M: [id number] Disch Hosp
--- NOTE | 2019-03-14 14:29 | NURSING ---
Discussed wound care with patient's . states he has been changing the dressings already at home. Did recommend follow up at the wound healing center as well. both deny questions at this time.
== END 2019-03-14 16:17 | disposition home or self-care (01) | DRG 542 ==
LOC: ED 19:51 → MS3 22:35 → PCU 03-11 09:43
PROVIDERS: Anesthesiology Pain Medicine; Physician Assistant; Admitting Provider Internal Medicine; Emergency Provider Emergency Medicine; Family Provider Family Medicine; PCP Family Medicine; Referring Provider Internal Medicine; Visit Provider Internal Medicine
PROC: 3E0S3BZ Introduction of Anesthetic Agent into Epidural Space, Percutaneous Approach (ICD-10-PCS; principal; 2019-03-13 13:55)
DX: M80.88XA Other osteoporosis with current pathological fracture, vertebra(e), initial encounter for fracture (principal); G93.41 Metabolic encephalopathy; J96.11 Chronic respiratory failure with hypoxia; L40.9 Psoriasis, unspecified; I10 Essential (primary) hypertension; M06.9 Rheumatoid arthritis, unspecified; I73.00 Raynaud's syndrome without gangrene; J84.17 Other interstitial pulmonary diseases with fibrosis in diseases classified elsewhere; Z99.81 Dependence on supplemental oxygen; Z87.891 Personal history of nicotine dependence; Z79.83 Long term (current) use of bisphosphonates; Z79.52 Long term (current) use of systemic steroids; M51.9 Unspecified thoracic, thoracolumbar and lumbosacral intervertebral disc disorder
CPT/HCPCS: 36415; 64490; 70450; 71046; 72020; 72072; 72128; 80048; 80053; 81001; 82140; 82533; 82962; 83605; 84443; 85025; 87040; 87086; 92526; 92610; 94640; 97116; 97163; 97166; 97530; 97535; 99251; 99285; J7030; J7040; J7120; A4216; G0463; J2405; J7799

== ENCOUNTER → 2019-08-02 | Outpatient (CLI) | payer MEDICARE, SELFPAY ==
--- NOTE | 2019-08-02 14:59 | RAD_ITS ---
STUDY: X-RAY CHEST REASON FOR EXAM: Female, 74 years old. PULMONARY FIBROSIS TECHNIQUE: PA and lateral views of the chest. COMPARISON: Previous study 03/13/2019 FINDINGS: Diffuse bilateral interstitial fibrosis is noted. There is no demonstrated pleural abnormality. Normal size heart. There is a small hiatal hernia. Normal visualized pulmonary arteries. There are calcified plaques of the aortic arch. Normal visualized thoracic spine. There is orthopedic hardware of the proximal left humerus. There is no demonstrated abnormality of the visualized soft tissue structures of the upper abdomen. RAD/Chest PA and Lateral IMPRESSION: Diffuse bilateral pulmonary interstitial fibrosis, appearing similar to the previous study. Small hiatal hernia. Calcified plaques of the aortic arch. No acute cardiopulmonary disease process is seen. Electronically Signed: Nehemiah Duron MD at 16:50 EDT , Service support ,
[2019-08-02 15:47] LABS: Hematocrit 36.8 % (37-47); Hemoglobin 11.4 g/dL (12.0-15.0); Mean Corpuscular Hgb 30.9 pg (27.0-32.0); Mean Corpuscular Volume 99.7 fL (81-99); Mean Platelet Vol. 9.7 fl (6.2-12.0); Platelet Count 451 K/mm3 (150-450); RBC Distribution Width CV 13.8 % (11.6-14.6); RBC Distribution Width SD 50.4 fl (35.1-43.9); Red Blood Count 3.69 M/mm3 (4.2-5.4); White Blood Count 12.5 K/mm3 (4.4-11.0)
[2019-08-02 16:19] LABS: AST(SGOT) 20 U/L (15-37); Alanine Aminotransfer ALT/SGPT 30 U/L (13-56); Albumin, Serum 3.3 g/dL (3.2-5.0); Alkaline Phosphatase 52 U/L (45-117); Bilirubin, Direct 0.16 mg/dL (0.00-0.30); Globulin 3.1 g/dL (2.2-4.2); Protein, Total 6.4 g/dL (6.4-8.2)
== END | disposition home or self-care (01) ==
PROVIDERS: PCP Family Medicine; Referring Provider Internal Medicine Pulmonary Disease; Visit Provider Internal Medicine Pulmonary Disease
DX: J84.10 Pulmonary fibrosis, unspecified (principal)
CPT/HCPCS: 36415; 71046; 80076; 85027

== ENCOUNTER 2019-11-22 15:35 | Emergency (ER) | payer MEDICARE, SELFPAY ==
[2019-11-22] VITALS (7 sets, daily range): BP systolic 135–198; BP diastolic 59–87; PULSE 69–104; RESP 21–31; TEMP 36.6; O2SAT 97–98; BMI 18.6
--- NOTE | 2019-11-22 15:53 | EKG12_ITS ---
Test Reason : CP Blood Pressure : / mmHG Vent. Rate : 074 BPM Atrial Rate : 074 BPM P-R Int : 140 ms QRS Dur : 074 ms QT Int : 364 ms P-R-T Axes : 061 014 005 degrees QTc Int : 404 ms Normal sinus rhythm Nonspecific ST abnormality Abnormal ECG Confirmed by VALENTIN OCLE, GARLAND ([id number]), commissioning editor LOVE NAVA ([id number]) on 11/27/2019 8:42:53 AM Referred By: Confirmed By:GARLAND HANSON MD
--- NOTE | 2019-11-22 15:55 | ED.VIS.GEN ---
History of Present Illness Chief Complaint: Abd Pain Informant: Patient Narrative: Patient presents the emergency department with epigastric pain. Symptoms have been present for years but over the past couple weeks have gotten worse. She states that she called her doctor's office today and told them that she wanted to come to the hospital. She states that it has been bad enough that she is wanted to see her doctors for it but just has not hoping that it would get better. She states she has been diagnosed with a gastric ulcer 2 years ago. Looking at her chart it appears that was 5 years ago. She takes omeprazole. Tells me she had diarrhea yesterday as well as nausea but no vomiting. She reports no black or bloody stools. She notes a gluten intolerance. She tells me that she has anxiety/panic attacks and is extremely anxious. She states that due to kyphosis she has limited ability to take a breath in addition to her pulmonary fibrosis. The patient notes that she is on 30 mg of prednisone daily. Has a history of anemia and is currently taking iron supplements. Hemoglobin 3.5 months ago was 11.4. - Past Medical History (1) Compression fracture of T7 vertebra Status: Chronic (2) Hyponatremia Status: Chronic (3) Eczema Status: Chronic (4) Erythromelalgia Status: Chronic (5) Hypertension Status: Chronic (6) Lumbar disc disease Status: Chronic (7) Psoriasis Status: Chronic (8) Raynaud's phenomenon Status: Chronic Past Medical History - Allergies and Home Meds Allergies/Adverse Reactions: Allergies cortisone Allergy (Verified 11/22/19 15:39) Swelling gluten Allergy (Verified 11/22/19 15:39) Abd cramps/diarrhea latex Allergy (Verified 11/22/19 15:39) Other WAS TOLD TO AVOID sulfamethoxazole [From Bactrim] Allergy (Verified 11/22/19 15:39) Other PROBLEMS SWALLOWING trimethoprim [From Bactrim] Allergy (Verified 11/22/19 15:39) Other PROBLEMS SWALLOWING sulfadimethoxine Adverse Reaction (Verified 11/22/19 15:39) Other I HAD TROUBLE WITHY MY THROAT Primary Care Physician: Luís Dorsey MD [Primary Care Provider] - Surgical History: - - The patient had a bladder suspension procedure performed many years ago, removal of cyst from perineum Smoking Status: Former smoker - Family History Maternal Family History: Reports: - - Rheumatoid arthritsi Paternal Family History: Reports: No pertinent history Review of Systems General: Denies: Chills, Fever, Sweats Eyes: Denies: Visual changes - bilaterally, Diplopia ENT: Denies: Rhinorrhea, Sore throat Cardiovascular: Denies: Chest pain, Palpitations Respiratory: Denies: Dyspnea, Cough, Dyspnea on exertion Gastrointestinal: Reports: Abdominal pain, Diarrhea. Denies: Nausea, Vomiting, Melena, Hematochezia Genitourinary: Denies: Dysuria, Hematuria, Frequency Musculoskeletal: Denies: Back pain, Extremity Pain Skin: Denies: Rash, Wounds Neurological: Denies: Headache, Weakness, Numbness Physical Exam Vital Signs/Narrative: Vital Signs Temp Pulse Resp BP Pulse Ox 11/22/19 15:39 98 11/22/19 15:36 97.8 F 89 22 H 135/60 H Inital Vital Signs reviewed: Yes General: Well developed, Cachectic, No Acute Distress Head: Normocephalic, Atraumatic Eyes: Perrl, EOMI ENT: Moist mucous membranes, No rhinorrhea Neck: Supple, Nontender Cardiovascular: Regular rate, Regular rhythm, No murmurs Respiratory: No distress, CTA bilaterally, Chest nontender Abdomen: Soft, Nondistended, Normal bowel sounds, Tender - Tender epigastrium. Negative for: Guarding, Rebound tenderness : - - There are 2 stage I/stage II decubitus ulcers in the sacral region. Back: - - Patient appears cachectic and kyphotic and her spinous process protrudes significantly from her back there is early skin breakdown on those processes Extremities: Nontender, No edema Skin: Normal color, No rash Neurological: Alert, Oriented x3, Cranial nerves II-XII grossly intact, Normal Strength, Normal Sensation Psychological: - - Patient appears anxious and depressed. No suicidal homicidal ideation. Diagnostic/Tx/Re-eval Laboratory Last Values WBC 12.8 K/mm3 (4.4-11.0) H 11/22/19 16:00 RBC 2.15 M/mm3 (4.2-5.4) L 11/22/19 16:00 Hgb 6.5 g/dL (12.0-15.0) L 11/22/19 16:00 Hct 21.3 % (37-47) L 11/22/19 16:00 MCV 99.1 fL (81-99) H 11/22/19 16:00 MCH 30.2 pg (27.0-32.0) 11/22/19 16:00 MCHC 30.5 g/dL (32-36) L 11/22/19 16:00 RDW Std Deviation 54.6 fl (35.1-43.9) H 11/22/19 16:00 RDW Coeff of Joey 15.4 % (11.6-14.6) H 11/22/19 16:00 Plt Count 509 K/mm3 (150-450) H 11/22/19 16:00 MPV 9.2 fl (6.2-12.0) 11/22/19 16:00 Immature Gran % (Auto) 0.300 % (0.0-0.9) 11/22/19 16:00 Neut % (Auto) 80.4 % (47-70) H 11/22/19 16:00 Lymph % (Auto) 10.9 % (19-41) L 11/22/19 16:00 Bracken % (Auto) 8.0 % (0-10) 11/22/19 16:00 Eos % (Auto) 0.2 % (0-5) 11/22/19 16:00 Baso % (Auto) 0.2 % (0-1) 11/22/19 16:00 Absolute Neuts (auto) 10.3 X10^3/uL (2.0-7.7) H 11/22/19 16:00 Absolute Lymphs (auto) 1.40 X10^3/uL (0.83-4.51) 11/22/19 16:00 Nucleated RBC % 0 % (0-5) 11/22/19 16:00 PT 13.7 SECONDS (11.7-14.9) 11/22/19 16:00 INR 1.1 11/22/19 16:00 APTT 25.8 Seconds (24.1-36.2) 11/22/19 16:00 Sodium 136 mmol/L (136-145) 11/22/19 16:00 Potassium 3.7 mmol/L (3.5-5.1) 11/22/19 16:00 Chloride 105 mmol/L (98-107) 11/22/19 16:00 Carbon Dioxide 27.0 mmol/L (21.0-32.0) 11/22/19 16:00 Anion Gap 4 (5-15) L 11/22/19 16:00 BUN 17 mg/dL (7-18) 11/22/19 16:00 Creatinine 0.69 mg/dL (0.55-1.02) 11/22/19 16:00 Estim Creat Clear Calc 32.57 ml/min 11/22/19 16:00 Est GFR (MDRD) Af Amer 107 mL/min (>60) 11/22/19 16:00 Est GFR (MDRD) Non-Af 88 mL/min (>60) 11/22/19 16:00 BUN/Creatinine Ratio 24.7 RATIO (10-20) H 11/22/19 16:00 Glucose 109 mg/dL (74-106) H 11/22/19 16:00 Lactic Acid 0.8 mmol/L (0.4-1.9) 11/22/19 16:00 Calcium 8.3 mg/dL (8.5-10.1) L 11/22/19 16:00 Total Bilirubin 0.60 mg/dL (0.20-1.00) 11/22/19 16:00 AST 9 U/L (15-37) L 11/22/19 16:00 ALT 16 U/L (13-56) 11/22/19 16:00 Alkaline Phosphatase 68 U/L (45-117) 11/22/19 16:00 Troponin I 0.090 ng/mL (<0.045) H 11/22/19 16:00 Total Protein 5.3 g/dL (6.4-8.2) L 11/22/19 16:00 Albumin 2.4 g/dL (3.2-5.0) L 11/22/19 16:00 Globulin 2.9 g/dL (2.2-4.2) 11/22/19 16:00 Albumin/Globulin Ratio 0.8 RATIO (0.9-2.4) L 11/22/19 16:00 Amylase 35 U/L (25-115) 11/22/19 16:00 Lipase 14 U/L (73-393) L 11/22/19 16:00 - EKG Initial EKG Interpretation: Sinus Rhythm - EKG demonstrates a normal sinus rhythm at a rate of [address] abnormality. No ectopy. - Medical Decision Making Opponent 0.09. Previously normal troponins. I suspect that this is a type II troponin leak. Basic labs are showing a hemoglobin of 6.5. Down significantly from 3-1/2 months ago when it was 11.4. Stool is positive Hemoccult. CT demonstrates a large hiatal hernia as well as a distended gallbladder and dilated common bile duct. This has been noted in the past and was supposed to have an MRCP about 5 years ago but I do not know if that was done. Patient has no pain in the right upper quadrant. Lactic acid is normal. Patient received a dose of Protonix. I spoke with our hospitalist who recommends transfer to tertiary care as we do not have GI. Patient appears significantly debilitated. She states she really has not been up moving around for some time. She has not been eating. All this I believe is resulting in skin breakdown on the sacrum and over her spinous processes. As the patient has assumed care I contacted [facility]. - Critical Care Time Critical care time (excluding procedures): 30-74 minutes - 35 min ED Disposition - Plan for ED Patient: Disposition: [facility] Diagnosis: Anemia, Decubitus ulcer of sacral area, Abdominal pain, Upper GI bleed, Hiatal hernia, Dilation of common bile duct Referrals: Luís Dorsey MD [Primary Care Provider] -
[2019-11-22 16:09] LABS: Absolute Neutrophil Count 10.3 X10^3/uL (2.0-7.7); Basophil# 0.02 X10^3/uL; Basophil% 0.2 % (0-1); Eosinophil# 0.02 X10^3/uL; Eosinophils% 0.2 % (0-5); Hematocrit 21.3 % (37-47); Hemoglobin 6.5 g/dL (12.0-15.0); Lymphocyte % 10.9 % (19-41); Mean Corp Hgb Conc 30.5 g/dL (32-36); Mean Corpuscular Hgb 30.2 pg (27.0-32.0); Mean Corpuscular Volume 99.1 fL (81-99); Mean Platelet Vol. 9.2 fl (6.2-12.0); Monocyte# 1.03 X10^3/uL; NRBC Flagged by Analyzer 0 % (0-5); Neutrophil # 10.29 X10^3/uL (2.7-7.7); Neutrophil % 80.4 % (47-70); Platelet Count 509 K/mm3 (150-450); RBC Distribution Width CV 15.4 % (11.6-14.6); RBC Distribution Width SD 54.6 fl (35.1-43.9); Red Blood Count 2.15 M/mm3 (4.2-5.4); White Blood Count 12.8 K/mm3 (4.4-11.0)
[2019-11-22 16:29] LABS: ALB/GLOB Ratio 0.8 RATIO (0.9-2.4); AST(SGOT) 9 U/L (15-37); Alanine Aminotransfer ALT/SGPT 16 U/L (13-56); Albumin, Serum 2.4 g/dL (3.2-5.0); Alkaline Phosphatase 68 U/L (45-117); Amylase 35 U/L (25-115); Anion Gap 4 (5-15); BUN 17 mg/dL (7-18); BUN/Creat Ratio 24.7 RATIO (10-20); Calcium,Total 8.3 mg/dL (8.5-10.1); Chloride 105 mmol/L (98-107); Creatinine, Serum 0.69 mg/dL (0.55-1.02); EST Glomerular Filtration Rate 88 mL/min (>60); Est Glom Filt Rate - Afr Amer 107 mL/min (>60); Estimated Creatinine Clearance 32.57 ml/min; Globulin 2.9 g/dL (2.2-4.2); Glucose 109 mg/dL (74-106); Lipase 14 U/L (73-393); Potassium 3.7 mmol/L (3.5-5.1); Protein, Total 5.3 g/dL (6.4-8.2); Sodium Level 136 mmol/L (136-145)
--- NOTE | 2019-11-22 16:33 | RAD_ITS ---
STUDY: X-RAY CHEST REASON FOR EXAM: Female, 74 years old. Chest pain. TECHNIQUE: AP portable COMPARISON: 08/02/2019 FINDINGS: Less than optimal inspiratory effort is seen. Chronic interstitial and emphysematous changes are present.. There is no demonstrated pleural abnormality. Heart appears enlarged although exaggerated by radiographic technique. Normal mediastinum and saeed. Normal visualized pulmonary arteries. Normal visualized aortic arch and descending thoracic aorta. Dorsal spine demonstrates degenerative change.. Normal visualized ribs, and clavicles. There are degenerative changes of the right shoulder and postsurgical changes on the left Small hiatal hernia is present. There is no demonstrated abnormality of the visualized soft tissue structures of the upper abdomen. RAD/Chest 1 View (Portable) IMPRESSION: Chronic interstitial and emphysematous changes. Diminished inspiratory effort but no focal infiltration or gross pulmonary edema Electronically Signed: Marco Rizzo MD at 17:22 EDT , Service support ,
--- NOTE | 2019-11-22 16:33 | CT_ITS ---
STUDY: CT ABDOMEN AND PELVIS WITH CONTRAST REASON FOR EXAM: Female, 74 years old. ABDOMINAL PAIN X YEARS. PULMONARY FIBROSIS RADIATION DOSAGE (If Supplied By Facility): CTDIvol = ( 6.68 ) mGy, DLP = ( 281.54 ) mGycm TECHNIQUE: Transaxial images were obtained from the dome of the diaphragm to the symphysis pubis without oral contrast. IV 75mL [id number]-300 was administered. Sagittal and coronal images were reconstructed. Individualized dose optimization techniques were used for this CT. COMPARISON: None. FINDINGS: Diffuse interstitial thickening seen in the lower lobes consistent with known pulmonary interstitial fibrosis.. Large hiatal hernia is demonstrated displacing the heart anteriorly. There is coronary artery calcification. There is tiny left pleural effusion The liver is fatty infiltrated. There is no focal mass.. The gallbladder is distended in association with mild dilatation of the intrahepatic bile ducts and common duct without definitive evidence for intraductal stone. There does appear to be very mild pericholecystic edema.. Normal spleen. Normal pancreas. Normal bilateral adrenal glands. Normal right kidney. Normal left kidney. Normal visualized stomach. Nonspecific ileus with diffuse fecal retention in the colon. No evidence for acute appendicitis. Atherosclerotic changes of the aorta without evidence for aneurysm.. Normal inferior vena cava. Normal retroperitoneum. Nonspecific bladder distention. Uterus not visualized consistent with hysterectomy. Normal abdominal wall. Lumbar spine demonstrates advanced degenerative change.. CT/Abdomen/Pelvis W IV Cont ONLY IMPRESSION: Distended gallbladder with pericholecystic edema and associated intrahepatic as well as extrahepatic bile duct dilatation of indeterminate etiology. There is no definitive evidence for intraductal stone or pancreatic mass. Noncalcified stone cannot be excluded nor can an ampullary lesion.. Ultrasound and possibly MRI/MRCP would be helpful for further assessment if indicated Electronically Signed: Marco Rizzo MD at 17:42 EDT , Service support ,
[2019-11-22] MEDS: Mag Hydrox/Al Hydrox/Simeth 30 ML UDC PO (16:43)
[2019-11-22] MEDS: MethylPREDNISolone 125 MG/2 ML Vial 60 MG IV (16:43)
[2019-11-22 17:12] LABS: Lactic Acid 0.8 mmol/L (0.4-1.9)
[2019-11-22 18:24] LABS: International Normalized Ratio 1.1; Prothrombin Time (Protime)PT. 13.7 SECONDS (11.7-14.9)
[2019-11-22 18:25] LABS: Partial Thromboplast Time 25.8 Seconds (24.1-36.2)
[2019-11-22 18:31] LABS: Mucous, Urine 0 SEEN /hpf (<or=2+); Red Blood Cells-Urine 0 SEEN /hpf (0-5); Squamous Epithelial Cells - UA 0 SEEN /hpf (5-10)
[2019-11-22 18:39] LABS: Color, Urine Yellow (Yellow); Glucose, Dipstick Normal (Normal); Ketone-Dipstick 5 mg/dl (Negative); Leukocyte Esterase-Dipstick 500 /ul (Negative); Nitrite-Dipstick Negative (Negative); Occult Blood-Urine 250 /ul (Negative); Protein-Dipstick 30 mg/dl (Negative); Specific Gravity, Urine 1.015 (1.002-1.030); Urine Bilirubin Dipstick Negative (Negative); Urine Clarity Cloudy (Clear); Urine Urobilinogen Normal (Normal)
[2019-11-22] MEDS: 0.9% Normal Saline 1,000 ML 150 ML IV (19:00)
[2019-11-22 19:11] LABS: Bacteria 3+ /hpf (None Seen); White Blood Cells >100 SEEN /hpf (0-5)
[2019-11-22] MEDS: Ondansetron 4 MG/2 ML Vial IV (20:41)
[2019-11-22] MEDS: Morphine 4 MG/ML Syringe IV (20:41)
--- NOTE | 2019-11-22 23:23 | ED.RN ---
spoke with cyndi at [facility] about their visitation policy they said could come up with pt and stay for an hour.
== END 2019-11-22 23:41 | disposition short-term general hospital (02) ==
PROVIDERS: Emergency Provider Emergency Medicine; PCP Family Medicine
DX: K92.2 Gastrointestinal hemorrhage, unspecified (principal); K83.8 Other specified diseases of biliary tract; K44.9 Diaphragmatic hernia without obstruction or gangrene; L89.159 Pressure ulcer of sacral region, unspecified stage; D64.9 Anemia, unspecified; I10 Essential (primary) hypertension; Z87.891 Personal history of nicotine dependence; Z79.899 Other long term (current) drug therapy
CPT/HCPCS: 71045; 74177; 80053; 81001; 82150; 82274; 83605; 83690; 84484; 85025; 85610; 85730; 93005; 96361; 96374; 96375; 99285; P9612; Q9967; A4216; J2405; J3490